=== PATIENT | male | born 1960 | race Caucasian/White ===

== ENCOUNTER → 2018-02-20 09:18 | Outpatient (CLI) | payer OTHER, SELFPAY ==
[2018-02-20 10:29] LABS: Absolute Neutrophil Count 4.4 X10^3/uL (2.0-7.7); Basophil# 0.02 X10^3/uL; Basophil% 0.3 % (0-1); Eosinophil# 0.22 X10^3/uL; Eosinophils% 3.4 % (0-5); Hematocrit 45.1 % (40-54); Hemoglobin 14.6 g/dl (13.0-16.5); Lymphocyte % 18.8 % (19-41); Mean Corp Hgb Conc 32.4 g/gl (32-36); Mean Corpuscular Hgb 27.1 pg (27.0-32.0); Mean Corpuscular Volume 83.7 fL (80-94); Mean Platelet Vol. 12.2 fl (6.2-12.0); Monocyte# 0.51 X10^3/uL; Neutrophil # 4.42 X10^3/uL (2.7-7.7); Neutrophil % 69.2 % (47-70); Platelet Count 163 K/mm3 (150-450); RBC Distribution Width CV 14.4 % (11.6-14.6); RBC Distribution Width SD 43.5 fl (35.1-43.9); Red Blood Count 5.39 M/mm3 (4.6-6.2); White Blood Count 6.4 K/mm3 (4.4-11.0)
[2018-02-20 10:30] LABS: POSITIVE COUNT NO; POSITIVE DIFFERENTIAL NO; POSITIVE MORPHOLOGY NO
[2018-02-20 10:51] LABS: Hemoglobin A1c 5.7 % (4.2-6.3)
[2018-02-20 11:09] LABS: ALB/GLOB Ratio 0.9 RATIO (0.9-2.4); AST(SGOT) 21 U/L (15-37); Alanine Aminotransfer ALT/SGPT 39 U/L (16-61); Albumin, Serum 3.7 g/dL (3.2-5.0); Alkaline Phosphatase 65 U/L (45-117); Anion Gap 10 (5-15); BUN 18 mg/dL (7-18); BUN/Creat Ratio 21.2 RATIO (10-20); Chloride 107 mmol/L (98-107); Cholesterol 181 mg/dL (200); Creatinine, Serum 0.85 mg/dL (0.70-1.30); EST Glomerular Filtration Rate 99 mL/min (>60); Est Glom Filt Rate - Afr Amer 120 mL/min (>60); Globulin 3.9 g/dL (2.2-4.2); Glucose 92 mg/dL (74-106); High Density Lipoprotein 46 mg/dL; PSA,Total - Annual Screen 0.56 ng/mL (0.00-4.00); Protein, Total 7.6 g/dL (6.4-8.2); Sodium Level 142 mmol/L (136-145); Triglycerides 105 mg/dL; Uric Acid 6.1 mg/dL (3.5-7.2); Very Low Density Lipoprotein 21 mg/dL (5-40)
== END ==
PROVIDERS: Family Provider Family Medicine; PCP Family Medicine; Visit Provider Family Medicine
DX: Z00.00 Encounter for general adult medical examination without abnormal findings (principal); G47.33 Obstructive sleep apnea (adult) (pediatric); M10.9 Gout, unspecified; R73.01 Impaired fasting glucose; Z12.5 Encounter for screening for malignant neoplasm of prostate
CPT/HCPCS: 36415; 80053; 80061; 83036; 84153; 84550; 85025; G0103

== ENCOUNTER → 2018-11-25 07:08 | Outpatient (CLI) | payer MEDICAID, SELFPAY ==
[2018-11-25 08:03] LABS: Absolute Lymphocyte Count 0.92 X10^3/ul (0.83-4.51); Absolute Neutrophil Count 3.8 X10^3/uL (2.0-7.7); Basophil# 0.03 X10^3/uL; Basophil% 0.6 % (0-1); Eosinophil# 0.23 X10^3/uL; Eosinophils% 4.2 % (0-5); Hemoglobin 14.2 g/dl (13.0-16.5); Lymphocyte # 0.92 X10^3/ul (4.0); Lymphocyte % 16.9 % (19-41); Mean Corp Hgb Conc 31.6 g/gl (32-36); Mean Corpuscular Hgb 26.9 pg (27.0-32.0); Mean Corpuscular Volume 85.2 fL (80-94); Mean Platelet Vol. 12.3 fl (6.2-12.0); Monocyte# 0.45 X10^3/uL; Monocyte% 8.3 % (0-10); Neutrophil # 3.78 X10^3/uL (2.7-7.7); Neutrophil % 69.6 % (47-70); Platelet Count 168 K/mm3 (150-450); RBC Distribution Width CV 14.5 % (11.6-14.6); Red Blood Count 5.28 M/mm3 (4.6-6.2); White Blood Count 5.4 K/mm3 (4.4-11.0)
[2018-11-25 08:11] LABS: POSITIVE COUNT NO; POSITIVE DIFFERENTIAL NO; POSITIVE MORPHOLOGY NO
[2018-11-25 08:45] LABS: Cholesterol 171 mg/dL (200); High Density Lipoprotein 46 mg/dL; PSA,Total - Annual Screen 0.48 ng/mL (0.00-4.00); Triglycerides 83 mg/dL; Uric Acid 6.4 mg/dL (3.5-7.2); Very Low Density Lipoprotein 17 mg/dL (5-40)
[2018-11-25 08:51] LABS: Hemoglobin A1c 5.7 % (4.2-6.3)
[2018-11-25 18:16] LABS: AST(SGOT) 24 U/L (15-37); Alanine Aminotransfer ALT/SGPT 40 U/L (16-61); Albumin, Serum 3.7 g/dL (3.2-5.0); Alkaline Phosphatase 66 U/L (45-117); Anion Gap 9 (5-15); BUN 16 mg/dL (7-18); BUN/Creat Ratio 17.9 RATIO (10-20); Calcium,Total 8.6 mg/dL (8.5-10.1); Chloride 109 mmol/L (98-107); Creatinine, Serum 0.89 mg/dL (0.70-1.30); EST Glomerular Filtration Rate 94 mL/min (>60); Est Glom Filt Rate - Afr Amer 113 mL/min (>60); Globulin 3.6 g/dL (2.2-4.2); Glucose 103 mg/dL (74-106); Potassium 4.1 mmol/L (3.5-5.1); Protein, Total 7.3 g/dL (6.4-8.2); Sodium Level 140 mmol/L (136-145)
== END ==
PROVIDERS: Family Provider Family Medicine; PCP Family Medicine; Referring Provider Family Medicine; Visit Provider Family Medicine
DX: Z00.01 Encounter for general adult medical examination with abnormal findings (principal); M10.9 Gout, unspecified; E66.01 Morbid (severe) obesity due to excess calories; R73.01 Impaired fasting glucose; Z12.5 Encounter for screening for malignant neoplasm of prostate
CPT/HCPCS: 36415; 80053; 80061; 83036; 84153; 84550; 85025; G0103

== ENCOUNTER → 2019-10-06 07:09 | Outpatient (CLI) | payer BC, SELFPAY ==
[2019-07-28 10:44] VITALS: BMI 42.3
[2019-10-06 08:11] LABS: Absolute Lymphocyte Count 1.25 X10^3/uL (0.83-4.51); Absolute Neutrophil Count 4.9 X10^3/uL (2.0-7.7); Basophil# 0.02 X10^3/uL; Basophil% 0.3 % (0-1); Eosinophil# 0.33 X10^3/uL; Eosinophils% 4.6 % (0-5); Hematocrit 44.3 % (40-54); Hemoglobin 13.7 g/dL (13.0-16.5); Lymphocyte # 1.25 X10^3/ul (4.0); Lymphocyte % 17.5 % (19-41); Mean Corp Hgb Conc 30.9 g/dL (32-36); Mean Corpuscular Hgb 26.1 pg (27.0-32.0); Mean Corpuscular Volume 84.4 fL (80-94); Mean Platelet Vol. 12.2 fl (6.2-12.0); Monocyte# 0.57 X10^3/uL; NRBC Flagged by Analyzer 0 % (0-5); Neutrophil % 68.8 % (47-70); Platelet Count 187 K/mm3 (150-450); RBC Distribution Width CV 14.1 % (11.6-14.6); RBC Distribution Width SD 42.8 fl (35.1-43.9); Red Blood Count 5.25 M/mm3 (4.6-6.2); White Blood Count 7.1 K/mm3 (4.4-11.0)
[2019-10-06 08:29] LABS: ALB/GLOB Ratio 0.9 RATIO (0.9-2.4); AST(SGOT) 15 U/L (15-37); Alanine Aminotransfer ALT/SGPT 30 U/L (16-61); Albumin, Serum 3.5 g/dL (3.2-5.0); Alkaline Phosphatase 64 U/L (45-117); Anion Gap 5 (5-15); BUN 17 mg/dL (7-18); Calcium,Total 8.8 mg/dL (8.5-10.1); Chloride 109 mmol/L (98-107); Cholesterol 169 mg/dL (200); EST Glomerular Filtration Rate 82 mL/min (>60); Est Glom Filt Rate - Afr Amer 99 mL/min (>60); Globulin 3.7 g/dL (2.2-4.2); Glucose 94 mg/dL (74-106); High Density Lipoprotein 51 mg/dL; PSA,Total - Annual Screen 0.49 ng/mL (0.00-4.00); Protein, Total 7.2 g/dL (6.4-8.2); Sodium Level 141 mmol/L (136-145); Triglycerides 77 mg/dL; Uric Acid 5.4 mg/dL (3.5-7.2); Very Low Density Lipoprotein 15 mg/dL (5-40)
[2019-10-06 09:56] LABS: Hemoglobin A1c 5.8 % (4.2-6.3)
== END ==
PROVIDERS: Family Provider Family Medicine; PCP Family Medicine; Referring Provider Family Medicine; Visit Provider Family Medicine
DX: Z00.01 Encounter for general adult medical examination with abnormal findings (principal); M10.9 Gout, unspecified; E66.01 Morbid (severe) obesity due to excess calories; R73.01 Impaired fasting glucose; Z12.5 Encounter for screening for malignant neoplasm of prostate
CPT/HCPCS: 36415; 80053; 80061; 83036; 84153; 84550; 85025; G0103

== ENCOUNTER → 2020-09-15 17:28 | Outpatient (CLI) | payer BC, SELFPAY ==
[2020-06-28 09:28] VITALS: BMI 42.3
== END ==
PROVIDERS: PCP Family Medicine; Referring Provider Family Medicine; Visit Provider Family Medicine
DX: Z03.818 Encounter for observation for suspected exposure to other biological agents ruled out (principal)
CPT/HCPCS: 87635; C9803; U0003

== ENCOUNTER → 2020-11-01 06:57 | Outpatient (CLI) | payer BC, SELFPAY ==
[2020-06-28 09:28] VITALS: BMI 42.3
[2020-11-01 07:14] LABS: Bacteria 0 SEEN /hpf (None Seen); Mucous, Urine 0 SEEN /hpf (<or=2+); Red Blood Cells-Urine 0 SEEN /hpf (0-5); White Blood Cells 0 SEEN /hpf (0-5)
[2020-11-01 08:32] LABS: Absolute Lymphocyte Count 1.09 X10^3/uL (0.83-4.51); Absolute Neutrophil Count 4.4 X10^3/uL (2.0-7.7); Basophil# 0.02 X10^3/uL; Basophil% 0.3 % (0-1); Eosinophil# 0.24 X10^3/uL; Eosinophils% 3.8 % (0-5); Hematocrit 44.1 % (40-54); Hemoglobin 14.1 g/dL (13.0-16.5); Lymphocyte # 1.09 X10^3/ul (4.0); Lymphocyte % 17.4 % (19-41); Mean Corpuscular Hgb 27.2 pg (27.0-32.0); Monocyte# 0.52 X10^3/uL; Monocyte% 8.3 % (0-10); NRBC Flagged by Analyzer 0 % (0-5); Neutrophil # 4.38 X10^3/uL (2.7-7.7); Neutrophil % 69.7 % (47-70); Platelet Count 185 K/mm3 (150-450); RBC Distribution Width CV 13.6 % (11.6-14.6); RBC Distribution Width SD 42.7 fl (35.1-43.9); Red Blood Count 5.19 M/mm3 (4.6-6.2); White Blood Count 6.3 K/mm3 (4.4-11.0)
[2020-11-01 08:55] LABS: Color, Urine Straw (Yellow); Glucose, Dipstick Normal (Normal); Ketone-Dipstick Negative (Negative); Leukocyte Esterase-Dipstick Negative /ul (Negative); Nitrite-Dipstick Negative (Negative); Occult Blood-Urine Negative /ul (Negative); Protein-Dipstick Negative (Negative); Specific Gravity, Urine 1.005 (1.002-1.030); Urine Bilirubin Dipstick Negative (Negative); Urine Clarity Clear (Clear); Urine Urobilinogen Normal (Normal); Urine pH 6.5 (5.0 - 8.0)
[2020-11-01 08:59] LABS: Hemoglobin A1c 5.6 % (3.8-5.6)
[2020-11-01 09:14] LABS: ALB/GLOB Ratio 1.1 RATIO (0.9-2.4); AST(SGOT) 16 U/L (15-37); Alanine Aminotransfer ALT/SGPT 36 U/L (16-61); Albumin, Serum 3.8 g/dL (3.2-5.0); Alkaline Phosphatase 71 U/L (45-117); BUN 19 mg/dL (7-18); BUN/Creat Ratio 20.5 RATIO (10-20); Calcium,Total 8.8 mg/dL (8.5-10.1); Cholesterol 194 mg/dL (200); Creatinine, Serum 0.92 mg/dL (0.70-1.30); EST Glomerular Filtration Rate 89 mL/min (>60); Est Glom Filt Rate - Afr Amer 108 mL/min (>60); Globulin 3.6 g/dL (2.2-4.2); Glucose 97 mg/dL (74-106); Protein, Total 7.4 g/dL (6.4-8.2); Triglycerides 124 mg/dL
[2020-11-01 09:15] LABS: Anion Gap 7 (5-15); Chloride 105 mmol/L (98-107); High Density Lipoprotein 47 mg/dL; Potassium 3.9 mmol/L (3.5-5.1); Sodium Level 137 mmol/L (136-145); Thyroid Stim Hormone (TSH) 0.79 uIU/mL (0.358-3.74); Very Low Density Lipoprotein 25 mg/dL (5-40)
[2020-11-01 09:19] LABS: Squamous Epithelial Cells - UA 0-5 SEEN /hpf (0-5)
[2020-11-03 09:39] LABS: SARS-COV-2 TOTAL ABS Nonreactive (Nonreactive); Vitamin B12 425 pg/mL (211-911); Vitamin D,25 Hydroxy 21.7 ng/mL
== END ==
PROVIDERS: PCP Family Medicine; Visit Provider Family Medicine
DX: Z00.00 Encounter for general adult medical examination without abnormal findings (principal); R53.83 Other fatigue; R82.90 Unspecified abnormal findings in urine; Z12.5 Encounter for screening for malignant neoplasm of prostate
CPT/HCPCS: 36415; 80053; 80061; 81001; 82306; 82607; 83036; 84443; 84550; 85025; 86769

== ENCOUNTER → 2021-05-12 08:26 | Outpatient (CLI) | payer OTHER, SELFPAY ==
[2020-06-28 09:28] VITALS: BMI 42.3
[2021-05-09 08:06] LABS: Absolute Lymphocyte Count 1.19 X10^3/uL (0.83-4.51); Absolute Neutrophil Count 3.6 X10^3/uL (2.0-7.7); Basophil# 0.05 X10^3/uL; Basophil% 0.9 % (0-1); Eosinophil# 0.32 X10^3/uL; Eosinophils% 5.7 % (0-5); Hematocrit 43.4 % (40-54); Hemoglobin 13.9 g/dL (13.0-16.5); Lymphocyte # 1.19 X10^3/ul (0.83-4.51); Lymphocyte % 21.1 % (19-41); Mean Corpuscular Hgb 26.7 pg (27.0-32.0); Mean Corpuscular Volume 83.5 fL (80-94); Mean Platelet Vol. 12.3 fl (6.2-12.0); Monocyte# 0.49 X10^3/uL; Monocyte% 8.7 % (0-10); NRBC Flagged by Analyzer 0 % (0-5); Neutrophil # 3.56 X10^3/uL (2.7-7.7); Neutrophil % 62.9 % (47-70); Platelet Count 185 K/mm3 (150-450); RBC Distribution Width CV 14.4 % (11.6-14.6); RBC Distribution Width SD 43.2 fl (35.1-43.9); White Blood Count 5.7 K/mm3 (4.4-11.0)
[2021-05-09 08:32] LABS: Albumin, Serum 3.5 g/dL (3.2-5.0); Anion Gap 6 (5-15); BUN 18 mg/dL (7-18); BUN/Creat Ratio 18.6 RATIO (10-20); Calcium,Total 9.3 mg/dL (8.5-10.1); Chloride 106 mmol/L (98-107); Creatinine, Serum 0.97 mg/dL (0.70-1.30); EST Glomerular Filtration Rate 85 mL/min (>60); Est Glom Filt Rate - Afr Amer 102 mL/min (>60); Glucose 97 mg/dL (74-106); Potassium 4.2 mmol/L (3.5-5.1); Sodium Level 139 mmol/L (136-145)
[2021-05-09 09:08] LABS: Hemoglobin A1c 5.8 % (3.8-5.6)
--- NOTE | 2021-05-12 08:45 | EKG12_ITS ---
Test Reason : PREOP Blood Pressure : / mmHG Vent. Rate : 077 BPM Atrial Rate : 077 BPM P-R Int : 160 ms QRS Dur : 080 ms QT Int : 378 ms P-R-T Axes : 036 011 012 degrees QTc Int : 427 ms Normal sinus rhythm Normal ECG Confirmed by MARCOS MASTERS, DARLING ([id number]), online content editor KHUSHBU GRULLON ([id number]) on 05/13/2021 10:44:58 AM Referred By: Bobby Jasso Confirmed By:DARLING RODRÍGUEZ MD
== END ==
PROVIDERS: PCP Family Medicine; Referring Provider Physician Assistant; Visit Provider Physician Assistant
DX: Z01.818 Encounter for other preprocedural examination (principal)
CPT/HCPCS: 36415; 80048; 82040; 83036; 85025; 93005

== ENCOUNTER → 2021-07-28 | Outpatient (CLI) | payer BC, SELFPAY | END | disposition home or self-care (01) | PROVIDERS: PCP Family Medicine; Referring Provider Family Medicine; Visit Provider Family Medicine | DX: Z20.822 Contact with and (suspected) exposure to COVID-19 (principal) | CPT/HCPCS: 87635; U0005; U0003 ==

== ENCOUNTER 2021-12-09 13:37 | Outpatient (RCR) | payer OTHER, BC, SELFPAY ==
--- NOTE | 2021-12-16 08:02 | HP.OTFCE_ITS ---
Floor (Occasional 1-33% of Day): 35# Floor (Frequent 34-66% of Day): 18# Floor (Constant 67-100% of Day): NA Floor PDL: Light-Medium Knee (Occasional 1-33% of Day): 35# Knee (Frequent 34-66% of Day): 18# Knee (Constant 67-100% of Day): NA Knee PDL: Light-Medium Waist (Occasional 1-33% of Day): 25# Waist (Frequent 34-66% of Day): 12# Waist (Constant 67-100% of Day): NA Waist PDL: Light Shoulder (Occasional 1-33% of Day): 25# Shoulder (Frequent 34-66% of Day): 12# Shoulder (Constant 67-100% of Day): NA Shoulder PDL: Light Overhead (Occasional 1-33% of Day): 10 Overhead (Frequent 34-66% of Day): NA Overhead (Constant 67-100% of Day): NA Overhead PDL: Sedentary Comments: pt can not lift on a constant ability due to pain in right shoulder Bending: Frequent Ability (34-66% of day) Comments: with external support Squatting: Frequent Ability (34-66% of day) Kneeling: Frequent Ability (34-66% of day) Comments: with external support Reaching out: Occasional Ability (1-33% of day) Reaching up: Occasional Ability (1-33% of day) Sitting: Frequent Ability (34-66% of day) Walking: Frequent Ability (34-66% of day) Standing: Frequent Ability (34-66% of day) Duration Sedentary Sedentary Light Light Light Medium Medium Medium Heavy Very Heavy Heavy Occasional (0-33% of day) Frequent (34-66% of day) Constant (67-100% of day) 10 # Negligible Negligible 15 # 8 # Negligible 20 # 10# Negli. 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 During this he felt and heard a pop in his right arm. Pt went to ER and after weeks of pain and limited mobility pt had MRI and it was found to have have multiple tears. ( Labral tear, Subscapularis and supraspinatus tears and long head of biceps rupture, Bursitis and luis angel. pt went through some physical therapy until he had sx in Mid 2021. pt states he went through physical therapy for about 5 months of therapy. pt states he feels like his strength has not return since the sx. Diagnoses: right shoulder labral tear. right shoulder subscapularis tear. right shoulder supraspinatus tear. right long head of biceps rupture. right shoulder sprain. right shoulder bursitis Symptoms: right shoulder pain. numbness in fingertips. Muscle cramp. Weakness. muscles jerks Pain: Pt states his right UE is 2/10 pain- pt states limited use arm pain is ok- increase use pain does increase. Mariela Pain scale total point score 38/78. Interpretation: ? minimum pain score: 0 (would not be seen in a person with true pain). ? maximum pain score: 78. ? The higher the pain score the greater the pain. References: Juaquin Mix. The Mariela Pain Questionnaire: Major properties and scoring methods. Pain. 1975;. 1: 277-299. Emmanuel Singleton. The Chinese counterpart to Mariela Pain Questionnaire. Pain. 1988; 32: 251-255. Work History: Pt works [employer]) almost 4 years. 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 pt states he went back to work right after sx on light duty- ( no lifting of right UE) pt is performing computer tasks for 8 hours. 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 pt states he worked for [employer] for about 7 years but due to buy outs he lost his job. Behavioral: pt cooperative throughout session pt forth good effort ADLS: pt states he lives in a ranch home with his - states he can shower but needs assistance with shirts.. will help with button shirts, coats etc. states until about a week ago he could not pull his pants together to button them. pt states he has difficulty with sleep due to pain. pt drives [employer]. does cooking, cleaning, grocery shopping- son did assist with yard work-. 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 ROM: right shoulder 135* flex. left shoulder 155* flex. all other ROM is WNL Strength: right shoulder flex resistance of 10# left 13#. right shoulder ext resistance of 13# painful with right left 18#. right shoulder horizontal add/abduction 15# pain with right left 14#. right triceps resistance of 13# left 29#. right biceps resistance 13# left 30#. right hip flex resistance 40# left 41#. right quad/hamstring resistance 48# left 36#. pt demo weakness in right UE Right Pulp Plant Supervisor Strength Average: 36.66 Right Pulp Plant Supervisor Strength Percentile: <4% Left Pulp Plant Supervisor Strength Average: 91.66 Left Pulp Plant Supervisor Strength Percentile: 54% Right Lateral Pinch Average: 10.00 Right Lateral Pinch Percentile: <10% Left Lateral Pinch Average: 20.00 Left Lateral Pinch Percentile: 50% Right Tripod Pinch Average: 10.66 Right Tripod Pinch Percentile: <10% Left Tripod Pinch Average: 16.00 Left Tripod Pinch Percentile: 25% Sensation: [place]- Brittany Monofilament sensory testing. left 2.83 interpretation Normal sensation (all digits). right IF, LF 3.84 interpretation Diminished protective sensation. right MF RF 3.61 interpretation Diminished light touch. right thumb 4.08 interpretation diminished protective sensation Fine Motor: 9 hole peg test. right 29.66 = 10 % for age. left 19.00 = 90% for age Balance: Pt demo normal -good balance. no noted loss of balance during assessment Bending: pt demo the bend forward 3/3x, 10/10x. heart rate at following the above 127. pt completed 07/12 rapidly. with use of external support. pt did get dizzy. pts heart rate 127. pt can bend forward on frequent ability with external support Squatting: pt demo the ability to squat 3/3x, 10/10x. heart rate 127. 1010 rapidly. pt heart rate 133 following 10 rapidly. pt can squat on a frequent ability Kneeling: Pt demo the ability to knee 3/3x 10/10 ( limited plan of movement ) heart rate 137. pt competed 10/10 rapidly limited plan of motion-use of external support. pt reports legs are burning after. pt can knee on a frequent ability with external support Reaching out/up: pt demo the ability to reach out 3/3x, 10/10x and 10/10 rapidly. pt reported pain 5/10. heart rate 121. pt demo the ability to reach up 3/3x, 10/10x. heart rate 121. 10/10 rapidly. pt reported pain level 4- 5/10. heart rate 123 Walking: pt demo the ability to ambulate for 15 min- with a good reciprocal gait pattern. pt can ambulate on a frequent ability Standing: pt demo the ability to stand for 10 min shifting body wt. pt can stand on a frequent ability Sitting: pt demo the ability to sit for 55 min with noted clenching of arm - pt can sit on a frequent ability. Climbing Stairs: pt demo the ability to ascend and descend 10 steps with a recipricola step pattern with use of left arm on handrail. pt maneuvered safely Floor Lift: pt demo the ability to lift 35# maximally from this level with good lifting mechanics. Knee Lift: pt demo the ability to lift 35# maximally from this level with good lifting mechanics. Waist Lift: pt demo the ability to lift 25# maximally from this level with good lifting mechanics. Shoulder Lift: pt demo the ability to lift 35# maximally from this level with good lifting mechanics. Overhead Lift: pt demo the ability to lift 10# maximally from this level with good lifting mechanics. Carrying: pt demo the ability to carry 15# for 30 feet with good ability. heart rate at 137 Comments: push/pull 45# for 30 feet. pain 4/10. pt did well with testing and put good effort into assessment
--- NOTE | 2021-12-16 08:02 | HP.OTFCE.D ---
FCE D/C Summary - Discharge ANUEL CLEMENTS was seen for a one time visit for an FCE on 12/09/21 and is discharged.
== END 2021-12-09 19:00 | disposition home or self-care (01) ==
LOC: OT 13:37
PROVIDERS: PCP Family Medicine; Referring Provider Orthopaedic Surgery; Visit Provider Orthopaedic Surgery
DX: S46.011D Strain of muscle(s) and tendon(s) of the rotator cuff of right shoulder, subsequent encounter (principal); S46.111D Strain of muscle, fascia and tendon of long head of biceps, right arm, subsequent encounter; S43.491D Other sprain of right shoulder joint, subsequent encounter
CPT/HCPCS: 97750

== ENCOUNTER 2021-12-29 16:14 | Outpatient (CLI) | payer OTHER, BC, SELFPAY ==
--- NOTE | 2021-12-29 16:33 | MRI_ITS ---
EXAM: MR RIGHT UPPER EXTREMITY WITHOUT INTRAVENOUS CONTRAST, SHOULDER CLINICAL INDICATION: STRAIN OF ROTATOR CUFF RT SHOULDER TECHNIQUE: Multiplanar and multisequence MR images of the right shoulder without intravenous contrast. This report was created using [employer] report [employer] technology. COMPARISON: None. FINDINGS: TENDONS: SUPRASPINATUS: Moderate grade partial thickness tearing involving the articular portion as well as the interstitial portion of the anterior tendon middle fibers of the supraspinous tendon. INFRASPINATUS: Unremarkable. Intact. SUBSCAPULARIS: Unremarkable. Intact. TERES MINOR: Unremarkable. Intact. BICEPS BRACHII, LONG HEAD: The biceps tendon is intact and normal in position. The extra-articular biceps tendon is in the bicipital groove. LIGAMENTS: GLENOHUMERAL: Unremarkable. Intact. MUSCLES: No focal muscle abnormalities. No rotator cuff muscle atrophy. FLUID: Unremarkable. No joint effusion. No subacromial-subdeltoid space bursal fluid. CARTILAGE: Unremarkable. Articular cartilage intact. GLENOID LABRUM: No labral abnormalities. BONES/JOINTS: Evidence of prior rotator cuff repair. Remaining rotator cuff is intact. Severe hypertrophic degenerative changes of the acromioclavicular joint with moderate mass affect on the musculotendinous junction of the supraspinous. Type II with flat undersurface. No subacromial enthesophyte. No os acromiale. No fracture. No abnormal bone marrow signal. OTHER SOFT TISSUES: Unremarkable. No rotator interval edema. OTHER FINDINGS: No marrow signal alterations. MRI/Upper Ext Joint Only(Routine) IMPRESSION: 1. Moderate grade partial thickness tearing involving the articular portion as well as the interstitial portion of the anterior tendon middle fibers of the supraspinous tendon. Bursal fibers are intact. 2. Severe hypertrophic degenerative changes of the acromioclavicular joint with moderate mass affect on the musculotendinous junction of the supraspinous. Electronically Signed: Irwin Hernandez MD at 21:48 EDT ,
== END 2021-12-29 23:59 | disposition home or self-care (01) ==
LOC: MRI 16:14
PROVIDERS: PCP Family Medicine; Visit Provider Orthopaedic Surgery
DX: S46.011A Strain of muscle(s) and tendon(s) of the rotator cuff of right shoulder, initial encounter (principal)
CPT/HCPCS: 73221

== ENCOUNTER → 2022-03-20 | Outpatient (CLI) | payer BC, SELFPAY ==
[2022-03-20 07:41] LABS: Absolute Lymphocyte Count 1.27 X10^3/uL (0.83-4.51); Absolute Neutrophil Count 4.3 X10^3/uL (2.0-7.7); Basophil# 0.03 X10^3/uL; Basophil% 0.5 % (0-1); Eosinophil# 0.27 X10^3/uL; Eosinophils% 4.2 % (0-5); Hematocrit 43.3 % (40-54); Hemoglobin 13.7 g/dL (13.0-16.5); Lymphocyte # 1.27 X10^3/ul (0.83-4.51); Lymphocyte % 19.7 % (19-41); Mean Corp Hgb Conc 31.6 g/dL (32-36); Mean Corpuscular Hgb 26.5 pg (27.0-32.0); Mean Corpuscular Volume 83.8 fL (80-94); Mean Platelet Vol. 11.8 fl (6.2-12.0); Monocyte# 0.48 X10^3/uL; Monocyte% 7.5 % (0-10); NRBC Flagged by Analyzer 0 % (0-5); Neutrophil # 4.34 X10^3/uL (2.7-7.7); Neutrophil % 67.3 % (47-70); Platelet Count 183 K/mm3 (150-450); RBC Distribution Width CV 14.9 % (11.6-14.6); RBC Distribution Width SD 45.2 fl (35.1-43.9); Red Blood Count 5.17 M/mm3 (4.6-6.2); White Blood Count 6.4 K/mm3 (4.4-11.0)
[2022-03-20 08:22] LABS: ALB/GLOB Ratio 0.9 RATIO (0.9-2.4); AST(SGOT) 22 U/L (15-37); Alanine Aminotransfer ALT/SGPT 40 U/L (16-61); Albumin, Serum 3.4 g/dL (3.2-5.0); Alkaline Phosphatase 60 U/L (45-117); Anion Gap 7 (5-15); BUN 17 mg/dL (7-18); BUN/Creat Ratio 17.5 RATIO (10-20); Chloride 106 mmol/L (98-107); Cholesterol 160 mg/dL (200); Creatinine, Serum 0.97 mg/dL (0.70-1.30); EST Glomerular Filtration Rate 84 mL/min (>60); Est Glom Filt Rate - Afr Amer 101 mL/min (>60); Globulin 3.9 g/dL (2.2-4.2); Glucose 108 mg/dL (74-106); High Density Lipoprotein 42 mg/dL; PSA,Total - Annual Screen 0.49 ng/mL (0.00-4.00); Protein, Total 7.3 g/dL (6.4-8.2); Sodium Level 138 mmol/L (136-145); Thyroid Stim Hormone (TSH) 1.07 uIU/mL (0.358-3.74); Triglycerides 102 mg/dL; Uric Acid 7.1 mg/dL (3.5-7.2); Very Low Density Lipoprotein 20 mg/dL (5-40)
[2022-03-20 09:03] LABS: Hemoglobin A1c 6.1 % (3.8-5.6)
[2022-03-22 08:27] LABS: Vitamin B12 474 pg/mL (211-911); Vitamin D,25 Hydroxy 21.9 ng/mL
== END | disposition home or self-care (01) ==
LOC: LAB 06:59
PROVIDERS: PCP Family Medicine; Referring Provider Family Medicine; Visit Provider Family Medicine
DX: Z00.00 Encounter for general adult medical examination without abnormal findings (principal); M10.9 Gout, unspecified; E55.9 Vitamin D deficiency, unspecified; R73.01 Impaired fasting glucose; R41.3 Other amnesia
CPT/HCPCS: 36415; 80053; 80061; 82306; 82607; 83036; 84153; 84443; 84550; 85025; G0103

== ENCOUNTER → 2022-04-28 | Outpatient (CLI) | payer BC, SELFPAY ==
--- NOTE | 2022-04-28 17:49 | MRI_ITS ---
STUDY: MRI LEFT KNEE REASON FOR EXAM: Left knee pain for 3 weeks. TECHNIQUE: Standardized fat and water weighted pulse sequences were obtained in all 3 orthogonal planes. COMPARISON: Radiographs 04/08/2022. FINDINGS: There is a complex tear of the posterior horn/body of the medial meniscus (proton-density sagittal images 32-36; proton-density coronal images 17-22). There is arthrosis of the medial femorotibial compartment with partial-thickness chondral loss (T2 sagittal image 17). There is slight subchondral bone edema of the medial tibial plateau, a stress phenomenon. There is mild periligamentous inflammation of the medial collateral ligament (T2 coronal image 26). Normal distal semimembranosus, gracilis and semitendinosus tendons. There is a small tear of the anterior horn of the lateral meniscus (proton-density sagittal images 14-16). Normal hyaline cartilage of the lateral femorotibial compartment. Normal lateral femoral condyle and tibial plateau. Normal proximal tibiofibular articulation. Normal lateral collateral (fibular) ligament. Normal popliteus tendon. Normal biceps femoris tendon. Normal anterior cruciate ligament (ACL). Normal posterior cruciate ligament (PCL). Normal congruent patellofemoral articulation. There is arthrosis of the patellofemoral compartment with chondral loss (T2 sagittal image 10). Normal medial and lateral patellar retinaculum. Normal visualized quadriceps tendon. Normal patellar tendon. Normal Hoffa''s fat pad. There is a very small joint effusion. There is edema in the subcutis adipose space. The otherwise visualized osseous structures are unremarkable. MRI/Lower Ext Joint Only (Routine) IMPRESSION: Medial meniscal tear. Small lateral meniscal tear. Arthrosis of the medial femorotibial and patellofemoral compartments. Mild periligamentous inflammation of the medial collateral ligament. Very small joint effusion. Electronically Signed: Julius Greer MD at 20:09 EDT ,
== END | disposition home or self-care (01) ==
LOC: MRI 17:49
PROVIDERS: PCP Family Medicine; Visit Provider Nurse Practitioner
DX: M23.92 Unspecified internal derangement of left knee (principal)
CPT/HCPCS: 73721

== ENCOUNTER 2022-04-29 15:30 | Outpatient (RCR) | payer BC, SELFPAY ==
--- NOTE | 2022-04-19 16:18 | HP.PTEVAL ---
Patient's Visit Information ANUEL CLEMENTS is a 61 year old M referred to Physical Therapy by BRAD Polk with a diagnosis of LEFT KNEE OSTEOARTHRITIS ,POSSIBLE MEDIAL MENISCUS TEAR. Date of Evaluation: 04/19/22 Physical Therapist: Donta Mccloud, PT, Cert MDT, OCS - Visit Plan Frequency: 2x /Week Duration: 4 Weeks Plan: PATIENT IS WAITING ON MRI APPROVAL. PT INTERVETIONS RO ,FLEXABLITY HAMSTRINGS /QUADS , GRADED PRES' QUADS/HAMS/HIP ,FUNCTIONAL STRENGTHENING AND MODALTIES PRN - Subjective This 61 y/o male presents to physical therapy with left knee pain OA. Patient reports ~ 3 weeks ago kneeling on knee several times and noticed knee pain next day which has progressively worse . Patient had difficulty walking and WB in knee. Patient has difficulty with cane and walker due to shoulder pain ,but able to use crutch as need for pain. Seen PA meloxicam ,did x-rays DJD . Aggravating factors walking ,standing ,stairs squatting, kneeling and WB. Alleviating factors rest ,ice, Denies paresthesia/tingling. Patient order MRI waiting for approval. Patient pain affects sleeping. Patient symptoms affects job and ADLS'. Patient goals to decrease knee pain. SOCIAL: . VOCATION: [employer] BODY - Pain Left Knee Pain Intensity (Out of 10): 6 Pain Intensity Range: 10 - Objective POSTURE: knee flexed left. GAIT: antalgic gait left side with decrease swing phase stance time. PALAPTION: medial /lateral joint line. EDEMA: mild effusion. AROM: 20-100 supine knee flexion pain. MMT ( peak force) : quads 14.7,hamstrings 20.6,hip flexion 21.5. STAIRS: one step at time with rails. PROPRIOCEPTION: POOR due to pain with WB - Special Tests L Knee Haja - ACL: Negative L Knee Anterior Drawer - ACL: Negative L Knee Posterior Drawer - PCL: Negative L Knee Posterior Sag - PCL: Negative L Knee Valgus - MCL: Negative L Knee Varus - LCL: Negative L Knee Patellar Grind - PFS: Positive - Balance/Special Test Scores Lower Extremity Functional Score: 24 - Goals Goal 1:: I with HEP for knee Goal Time Frame: 6-8 Weeks Goal 2:: Patient to improve AROM 5 -115 supine knee flexion to improve stairs Goal Time Frame: 4-6 Weeks Goal 3:: Patient to demonstrate 50% improvement with decrease pain to improve gait and function Goal Time Frame: 4-6 Weeks Goal 4:: Patient to improve MMT peak force by 10 for hams/quads to improve gait Goal Time Frame: 4-6 Weeks Goal 5:: Patient to normalize gait with less antalgic gait by 80% Goal Time Frame: 4-6 Weeks Goal 6:: Patient to improve LFES score by 5-10 points to QOL and gait Goal Time Frame: 4-6 Weeks - Rehabilitation Potential Physical Therapy Diagnosis: This patient with knee pain with possible meniscus involvement with pain ,poor ROM ,weakness causes deficits with walking affects general ADL's and housework tasks along with job demands thus will benefit from skilled PT and MRI Rehabilitation Potential: Good - Anticipated Interventions Patient/Client Instruction: Educate patient on: Condition, Plan of Care For the Purpose of:: To decrease pain, To increase ROM, To improve nutrient delivery to tissue, To increase oxygenation perfusion, To improve muscle performance and motor function, To improve ability to perform ADL's, To increase tolerance to activity/condition/position, To improve ability of physical actions for home/community/work/leisure, To improve gait and locomotor functions, To improve health of tissue, To decrease soft tissue restriction, To increase flexibility/ROM, To prevent re-injury Therapeutic Exercise to Include: Strength training, Power training, Endurance training, Balance training, Flexibilty training Comment: QUADS/HAMS/HIP For the Purpose of:: To decrease pain, To increase ROM, To improve muscle performance and motor function, To improve ability to perform ADL's, To increase tolerance to activity/condition/position, To improve ability of physical actions for home/community/work/leisure, To improve health of tissue, To decrease soft tissue restriction, To increase flexibility/ROM, To improve endurance, To improve balance TENS: Yes IF ES: Yes Cryotherapy (ice pack, ice massage): Yes Thermo therapy (hot pack): Yes Ultrasound (thermal/non thermal): Yes For the Purpose of:: To decrease pain, To increase ROM, To improve health of tissue, To decrease soft tissue restriction Thank you for the opportunity to evaluate your patient. For Medicare and Medicare HMO plans, please review the plan of care and approve it. It will need to be FAXED BACK to us at [phone] for Medicare purposes. For Medicare only, by signing this I certify the plan of care. Please let me know if there are questions or concerns regarding this plan of care. Physician Signature: Date:
--- NOTE | 2022-09-08 08:49 | HP.PT.NRP ---
ANUEL ZOË CLEMENTS was seen in my office for initial evaluation on 04/19/22. The following Plan of Care was established for this patient: Initial Frequency: 2x /Week Initial Duration: 4 Weeks Patient/Client Instruction: Educate patient on: Condition, Plan of Care For the Purpose of:: To decrease pain, To increase ROM, To improve nutrient delivery to tissue, To increase oxygenation perfusion, To improve muscle performance and motor function, To improve ability to perform ADL's, To increase tolerance to activity/condition/position, To improve ability of physical actions for home/community/work/leisure, To improve gait and locomotor functions, To improve health of tissue, To decrease soft tissue restriction, To increase flexibility/ROM, To prevent re-injury Therapeutic Exercise to Include: Strength training, Power training, Endurance training, Balance training, Flexibilty training For the Purpose of:: To decrease pain, To increase ROM, To improve muscle performance and motor function, To improve ability to perform ADL's, To increase tolerance to activity/condition/position, To improve ability of physical actions for home/community/work/leisure, To improve health of tissue, To decrease soft tissue restriction, To increase flexibility/ROM, To improve endurance, To improve balance TENS: Yes IF ES: Yes Cryotherapy (ice pack, ice massage): Yes Thermo therapy (hot pack): Yes Ultrasound (thermal/non thermal): Yes For the Purpose of:: To decrease pain, To increase ROM, To improve health of tissue, To decrease soft tissue restriction This patient was last seen in our office . Pertinent comments regarding their Physical therapy will appear below: Patient developed knee pain ,MRI then had meniscectomy knee thus d/c At this point I will be discontinuing this patient from physical therapy. I would be happy to see this patient again in the future if found appropriate by the physician. Thank you! Donta Mccloud, PT, Cert MDT, OCS Balance/Gait/Functional tests - Balance/Special Test Scores Lower Extremity Functional Score: 24
== END 2022-04-29 19:00 | disposition home or self-care (01) ==
LOC: PT 15:30
PROVIDERS: PCP Family Medicine; Referring Provider Nurse Practitioner; Visit Provider Nurse Practitioner
DX: M17.12 Unilateral primary osteoarthritis, left knee (principal)
CPT/HCPCS: 97110; 97162

== ENCOUNTER → 2022-05-29 | Outpatient (CLI) | payer BC, SELFPAY ==
[2022-05-29 07:55] LABS: Absolute Lymphocyte Count 1.41 X10^3/uL (0.83-4.51); Absolute Neutrophil Count 4.8 X10^3/uL (2.0-7.7); Basophil# 0.04 X10^3/uL; Basophil% 0.6 % (0-1); Eosinophil# 0.24 X10^3/uL; Eosinophils% 3.4 % (0-5); Hematocrit 43.6 % (40-54); Hemoglobin 13.8 g/dL (13.0-16.5); Lymphocyte # 1.41 X10^3/ul (0.83-4.51); Lymphocyte % 19.8 % (19-41); Mean Corp Hgb Conc 31.7 g/dL (32-36); Mean Corpuscular Hgb 27.1 pg (27.0-32.0); Mean Corpuscular Volume 85.5 fL (80-94); Mean Platelet Vol. 11.8 fl (6.2-12.0); Monocyte# 0.63 X10^3/uL; Monocyte% 8.8 % (0-10); NRBC Flagged by Analyzer 0 % (0-5); Neutrophil # 4.77 X10^3/uL (2.7-7.7); Neutrophil % 66.8 % (47-70); Platelet Count 185 K/mm3 (150-450); RBC Distribution Width CV 14.8 % (11.6-14.6); White Blood Count 7.1 K/mm3 (4.4-11.0)
[2022-05-29 08:21] LABS: ALB/GLOB Ratio 0.9 RATIO (0.9-2.4); AST(SGOT) 20 U/L (15-37); Alanine Aminotransfer ALT/SGPT 39 U/L (16-61); Albumin, Serum 3.4 g/dL (3.2-5.0); Alkaline Phosphatase 60 U/L (45-117); Anion Gap 6 (5-15); BUN 17 mg/dL (7-18); BUN/Creat Ratio 16.7 RATIO (10-20); Calcium,Total 9.6 mg/dL (8.5-10.1); Chloride 107 mmol/L (98-107); Creatinine, Serum 1.02 mg/dL (0.70-1.30); EST Glomerular Filtration Rate 79 mL/min (>60); Est Glom Filt Rate - Afr Amer 96 mL/min (>60); Globulin 3.9 g/dL (2.2-4.2); Glucose 103 mg/dL (74-106); Potassium 4.2 mmol/L (3.5-5.1); Protein, Total 7.3 g/dL (6.4-8.2); Sodium Level 139 mmol/L (136-145)
== END | disposition home or self-care (01) ==
LOC: LAB 06:59
PROVIDERS: PCP Family Medicine; Referring Provider Family Medicine; Visit Provider Family Medicine
DX: Z01.818 Encounter for other preprocedural examination (principal)
CPT/HCPCS: 36415; 80053; 85025

== ENCOUNTER 2022-06-04 11:28 | Day surgery (SDC) | payer BC, SELFPAY ==
[2022-06-04] VITALS (7 sets, daily range): BP systolic 129–173; BP diastolic 59–99; PULSE 74–97; RESP 16–18; TEMP 36.3–37; O2SAT 93–98; BMI 43.4
[2022-06-04] MEDS: Lactated Ringers 1,000 ML 15 ML IV (12:19)
[2022-06-04] MEDS: Cefazolin 2 GM in 0.9% Normal Saline 100 ML IV (13:32)
[2022-06-04] MEDS: Epinephrine (1 mg/ml) 1 MG/ML VIAL (13:40)
[2022-06-04] MEDS: morphine PF (epidural) 5 MG/10 ML Vial (13:40)
[2022-06-04] MEDS: Lidocaine 1% /Epi 1:100 (20ml) 20 ML Vial (13:41)
--- NOTE | 2022-06-04 14:23 | PCM.OPRPT ---
Problems Associated Problem List Diagnoses (1) Tear of lateral meniscus of left knee: (2) Tear of medial meniscus of left knee: (3) Osteoarthritis of left knee: Report of Operation Date of Procedure: 06/04/22 Description of Surgical Findings:: Preoperative diagnosis: Left knee medial and lateral meniscus tears, arthritis Postoperative diagnosis : Same plus loose body Procedure: Diagnostic video arthroscopy, left knee, partial medial meniscectomy, partial lateral meniscectomy, chondroplasty medial femoral condyle, removal loose body Surgeon: Dr. Yariel Puckett Anesthesia: General Special medications: Ancef 2 g IV Indications for surgery: Patient is a 61 -year-old male with a long-standing history of left knee pain. Patient failed adequate nonoperative treatment for the knee pain. MRI findings discussed with patient. Due to persistent symptoms they wish to proceed with knee arthroscopy. Findings: Intraoperative findings were consistent with patient's preoperative history, physical, radiographic exam. Details of procedure: Patient was taken to the OR transfer to the OR table. Nonoperative limb was appropriately padded, JOSE hose and SCD applied. Patient was placed under the anesthetic agent. Operative knee was examined. No signs of infection. Operative upper thigh was well-padded and ultimately placed in a well-padded thigh diaz. Operative lower extremity was prepped and draped in usual orthopedic sterile fashion for the procedure. Local anesthetic agent was sterilely injected into the proposed arthroscopic portals. Lateral portal was established with a knife. Took us through skin only. Dull trocar took us into the joint. The scope was placed through the lateral portal. Medial portal and ultimately established using a spinal needle followed by a knife through skin, followed by a dull trocar into the joint. Probe was placed to the medial portal. Patellofemoral joint: Moderate significant arthritis was noted. Patella tracked nicely. No significant plica noted. Medial and lateral gutter: No loose bodies or pathology noted. Intercondylar notch: ACL appeared within normal limits. Nice resting tension. loose bodies identified in notch. Loose body removed with a grasper. Hard structure probable loose bony fragment noted to be about 3 x 4 x 3 mm. Picture taken. no cystic changes noted. Medial compartment: Chondral surfaces showed degenerative changes involving the medial portion of the medial femoral condyle. Also medial meniscus tear posterior horn noted. Unstable. Nonrepairable. Partial medial meniscectomy was carried out with a shaver as well as forward biting basket. Chondroplasty carried out with a shaver. Full-thickness cartilage loss with bare bone not identified. Lateral compartment: Chondral surfaces with mild diffuse degenerative changes. lateral meniscus tear noted inner rim midportion., and compartment fully probed. Partial lateral meniscectomy carried out with a shaver. Posterior medial compartment: Could not be accessed due to patient's bony anatomy, arthritic changes. Posterior lateral compartment: Could not be accessed due to patient's bony anatomy, arthritic changes. Arthroscopic pictures were taken and saved throughout the procedure. Knee was drained of excess fluid. Arthroscopic instruments were removed. Arthroscopic portals closed with simple sutures of 4-0 nylon. Knee joint injected with a combination of local anesthetic and Duramorph. sterile bandage was applied. Patient was transferred to the room bed and recovery room in satisfactory condition. They will be discharged to home when stable, follow-up in the office in 7-10 days. Patient and the family understand discharge instructions, all of their questions answered. Patient will use 81 mg aspirin twice a day for DVT prevention. This note was generated with [email or web address] dictation software. It may contain incorrect words, spelling, and punctuation that were not noted in checking the note before signing.
[2022-06-04] MEDS: traMADol 50 MG Tablet PO (16:03)
[2022-06-04] MEDS: Acetaminophen 500 MG Tablet 1000 MG PO (16:03)
== END 2022-06-04 16:17 | disposition home or self-care (01) ==
LOC: SDC 11:28 → AC 11:31
PROVIDERS: PCP Family Medicine; Visit Provider Orthopaedic Surgery
PROC: (CPT 29870; principal; 2022-06-04 12:40)
DX: S83.282A Other tear of lateral meniscus, current injury, left knee, initial encounter (principal); Z68.42 Body mass index [BMI] 45.0-49.9, adult; M17.12 Unilateral primary osteoarthritis, left knee; S83.242A Other tear of medial meniscus, current injury, left knee, initial encounter; E66.9 Obesity, unspecified; X50.1XXA Overexertion from prolonged static or awkward postures, initial encounter; Y93.9 Activity, unspecified; Y92.9 Unspecified place or not applicable; G47.30 Sleep apnea, unspecified; Z87.891 Personal history of nicotine dependence; M10.9 Gout, unspecified; Z79.899 Other long term (current) drug therapy; R03.0 Elevated blood-pressure reading, without diagnosis of hypertension
CPT/HCPCS: 29880; 01400; 87426; C9803; J7120; J2405

== ENCOUNTER 2022-07-15 15:00 | Outpatient (RCR) | payer OTHER, BC, SELFPAY ==
--- NOTE | 2022-02-01 17:49 | HP.PTEVAL_ITS ---
Patient's Visit Information ANUEL CLEMENTS is a 61 year old M referred to Physical Therapy by Dr. Dwayne Pinzon, DO with a diagnosis of PRIMARY OSTEOARTHRITIS ,RIGHT SHOULDER ,IMPINGEMENT SYNDROME OF R -SHOULDER. Date of Evaluation: 02/01/22 Physical Therapist: Donta Mccloud, PT, Cert MDT, OCS - Visit Plan Frequency: 2-3x /Week Duration: 6 Weeks Plan: S/P RTC REPAIR May. PHYSICAL THERAPY INTERVENTIONS PROM/AAROM,STRENGTHENING RTC/POSTURAL,AND MODALTES PRN (CP/MHP) - Subjective This 61 y/o male presents to physical therapy with right shoulder pain impingement right shoulder. 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 Patient felt pop with immediate pain. Patient pain continue DR Pinzon did MRI 12/29/21 . Patient had 2nd opinion orthopedic did exam. Patient pain global and biceps . Patient had shoulder injury last January 15 had RTC surgery May 20 2021 , without repair bicep by Dr Pinzon. Patient has had prior PT at [facility]. Seen DR has new C9. Patient has been doing band strengthening. Patient has some paresthesia/tingling fingers. Patient has had FCE to RTW. Currently, patient is on light duty at work ,mainly on computer. Patient shoulder impairs function with ADL's and RTW full duty. Patient major goals to restore full motion and strength. Patient sleeping okay. No meds except maynor for pain . VOCATION: [employer]. SOCAIL: - Pain Right Shoulder Pain Intensity (Out of 10): 2 Pain Intensity Range: 10 - Objective POSTURE: mild forward posture. NEURO: intact. PALPATION: tender AC region. AROM: shoulder flexion 140 degrees, Abduction 140 degrees ,ER 90 degrees ,IR S3. CAPSULAR: mild tight. MMT(peak force): infraspinatus 7.3,subscapulars 8.6 ,subscapularis 11.4, deltoid 8.4 - Special Tests R Shoulder Lift Off Test - Subscapular Tear: Negative R Shoulder Drop Sign - IS Test: Negative R Shoulder Neer - Impingement: Positive R Shoulder Schneider Surya - Impingement: Positive - Balance/Special Test Scores Quick DASH Score: 62.5000 - Goals Goal 1:: I with HEP for ROM and strength right shoulder Goal Time Frame: 6-8 Weeks Goal 2:: Patient to demonstrate 60% improvement with increase function and less pain. Goal Time Frame: 6-8 Weeks Goal 3:: Patient improve AROM right shoulder by 10 degrees for flexion, abduction and IR to improve OH activities and ADLS' Goal Time Frame: 6-8 Weeks Goal 4:: Patient to peak force RTC and deltoid by 10 peak force to improve function with OH activities. Goal Time Frame: 6-8 Weeks Goal 5:: Patient to improve quick dash by 5 points to improve QOL Goal Time Frame: 6-8 Weeks - Rehabilitation Potential Physical Therapy Diagnosis: This patient underwent s/p RTC repair May 202020 ,by DR Pinzon with decrease ROM ,strength with pain impairs function and RTW full duty thus benefit from skilled PT Rehabilitation Potential: Good - Anticipated Interventions Patient/Client Instruction: Educate patient on: Condition, Plan of Care For the Purpose of:: To decrease pain, To increase ROM, To improve muscle performance and motor function, To improve ability to perform ADL's, To increase tolerance to activity/condition/position, To improve performance and independence with ADL's, To improve ability of physical actions for home/community/work/leisure, To improve health of tissue, To decrease soft tissue restriction, To increase flexibility/ROM, To improve endurance, To prevent re-injury Therapeutic Exercise to Include: Strength training, Flexibilty training, Passive ROM, Active ROM, Scapular Strength/Stabilization Comment: RTC/SCAPULAR For the Purpose of:: To decrease pain, To increase ROM, To improve ability to perform ADL's, To increase tolerance to activity/condition/position, To improve ability of physical actions for home/community/work/leisure, To improve health of tissue, To decrease soft tissue restriction, To increase flexibility/ROM, To improve tolerance to ADL's TENS: Yes IF ES: Yes Cryotherapy (ice pack, ice massage): Yes Thermo therapy (hot pack): Yes Ultrasound (thermal/non thermal): Yes For the Purpose of:: To decrease pain, To increase ROM, To improve nutrient delivery to tissue, To increase oxygenation perfusion, To improve health of tissue, To decrease soft tissue restriction Thank you for the opportunity to evaluate your patient. For Medicare and Medicare HMO plans, please review the plan of care and approve it. It will need to be FAXED BACK to us at [phone] for Medicare purposes. For Medicare only, by signing this I certify the plan of care. Please let me know if there are questions or concerns regarding this plan of care. Physician Signature: Date:
--- NOTE | 2022-07-15 15:31 | HP.PTDCSUM ---
It has been my pleasure to treat ANUEL CLEMENTS referred by Dr. Dwayne Pinzon DO, with the diagnosis of PRIMARY OSTEOARTHRITIS, RIGHT SHOULDER IMPINGEMENT SYNDROME for a total of 44 visit(s). Discharge Date: 07/15/22 Please see the following information for a summary of their discharge status. Subjective: Doing okay has alot of personal problems Right Shoulder Pain Intensity (Out of 10): 3 Left Knee Pain Intensity (Out of 10): 1 % Improvement: 60 Objective/Function: POSTURE: rounded shoulders. AROM : shoulder flexion 145 degrees,abd 140 degrees ER 80. MMT: 4-/5 RTC DELTOID Goal 1:: I with HEP for ROM and strength right shoulder Goal Progress: Goal Met Goal 2:: Patient to demonstrate 60% improvement with increase function and less pain. Goal Progress: Goal Met Goal 3:: Patient improve AROM right shoulder by 10 degrees for flexion, abduction and IR to improve OH activities and ADLS' Goal Progress: Goal Met Goal 4:: Patient to peak force RTC and deltoid by 10 peak force to improve function with OH activities. Goal Progress: Progressing Goal 5:: Patient to improve quick dash by 5 points to improve QOL Goal Progress: Goal Met Plan: S/P RTC REPAIR MAY 20, 2021. PHYSICAL THERAPY INTERVENTIONS PROM/AAROM, STRENGTHENING RTC/POSTURAL, AND MODALITES PRN (CP/MHP) If there are questions or concerns regarding this patient's physical therapy, please feel free to call me at [phone]. Thank you for the referral of this patient. Sincerely, Donta Mccloud, PT, Cert MDT, OCS Balance/Gait/Functional tests - Balance/Special Test Scores Quick DASH Score: 18.1800
== END 2022-07-15 19:00 | disposition home or self-care (01) ==
LOC: PT 15:00
PROVIDERS: PCP Family Medicine; Referring Provider Orthopaedic Surgery; Visit Provider Orthopaedic Surgery
DX: M19.011 Primary osteoarthritis, right shoulder (principal); M75.41 Impingement syndrome of right shoulder
CPT/HCPCS: 97014; 97110; 97162; G0283

== ENCOUNTER 2022-08-17 13:27 | Outpatient (RCR) | payer OTHER, BC, SELFPAY ==
--- NOTE | 2022-08-23 17:58 | HP.FCE ---
Floor (Occasional 1-33% of Day): 25# Floor (Frequent 34-66% of Day): 12.5# Floor (Constant 67-100% of Day): NA Floor PDL: Light Knee (Occasional 1-33% of Day): 25# Knee (Frequent 34-66% of Day): 12.5# Knee (Constant 67-100% of Day): NA Knee PDL: Light Waist (Occasional 1-33% of Day): 25# Waist (Frequent 34-66% of Day): NA Waist (Constant 67-100% of Day): NA Waist PDL: Light Shoulder (Occasional 1-33% of Day): 15# Shoulder (Frequent 34-66% of Day): 8# Shoulder (Constant 67-100% of Day): NA Shoulder PDL: Sedentary-Light Overhead (Occasional 1-33% of Day): 10# Overhead (Frequent 34-66% of Day): NA Overhead (Constant 67-100% of Day): NA Overhead PDL: Sedentary Comments: Light Physical demand Level for lifting from floor, Knee and waist levels. Sedentary Light Physical Demand Level for lifting at shoulder levels. Sedentary Physical Demand level for lifting overhead levels, Bending: Frequent Ability (34-66% of day) Comments: with external support Squatting: Frequent Ability (34-66% of day) Kneeling: Frequent Ability (34-66% of day) Comments: with external support Reaching out: Occasional Ability (1-33% of day) Reaching up: Occasional Ability (1-33% of day) Sitting: Frequent Ability (34-66% of day) Walking: Frequent Ability (34-66% of day) Standing: Frequent Ability (34-66% of day) Duration Sedentary Sedentary Light Light Light Medium Medium Medium Heavy Very Heavy Heavy Occasional (0-33% of day) Frequent (34-66% of day) Constant (67-100% of day) 10 # Negligible Negligible 15 # 8 # Negligible 20 # 10# Negli. 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 During this he felt and heard a pop in his right arm. Pt went to ER and after weeks of pain and limited mobility pt had MRI and it was found to have have multiple tears. ( Labral tear, Subscapularis and supraspinatus tears and long head of biceps rupture, Bursitis and sprain. pt went through some physical therapy until he had sx in Mid 2021. pt states he went through physical therapy for about 5 months of therapy. pt states he feels like his strength has not return since the sx. PT was seen for FCE December 2021 for his injury pt states he did continue physical therapy follow the FCE until about three weeks ago. per pt is trying to figure out what limitations he has to return to work. Diagnoses: right shoulder labral tear. right shoulder subscapularis tear. right shoulder supraspinatus tear. right long head of biceps rupture. right shoulder sprain. right shoulder bursitis. Left Knee scope 06/24 Symptoms: right shoulder pain. numbness in fingertips. Muscle cramp. Weakness. muscles jerks Pain: Pt states pain level sitting 3/10 and pain medication at 5am. pt states if he tries to pick things his right arm hurts so he tries to avoid it. Work History: Pt works [email or web address]) almost 4 years. 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 pt states he went back to work right after sx on light duty- ( no lifting of right UE) pt is performing computer tasks for 8 hours. 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 pt states he worked for [employer] for about 7 years but due to buy outs he lost his job. Behavioral: pt cooperative throughout session pt forth good effort ADLS: pt states he lives in a ranch home with his - states he can shower but needs assistance with shirts.. will help with button shirts, coats etc. states until about a week ago he could not pull his pants together to button them. pt states he has difficulty with sleep due to pain. pt drives [employer]. does cooking, cleaning, grocery shopping- son did assist with yard work-. 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 Physical Examination: resting heart rate 85 ROM: right shoulder 118* flex. left shoulder 160* flex. all other ROM is WFL Strength: strength tested with FIT2. right shoulder flexion 12.8# left 27#. right shoulder extension 14# left 28#. right biceps 16# left 32#. right triceps 19# left 32#. right hip flexion 48# left 49#. right quad 30# left 31#. right hamstring 32# left 28#. pt demo a right UE weakness grossly throughout compared to unaffected side. Right [employer] Specialist Strength Average: 34.10 Right Channel Marketing Specialist Strength Percentile: <4.8% Left [employer] Marketing Specialist Strength Average: 88.73 Left Channel Marketing Specialist Strength Percentile: 48% Right Lateral Pinch Average: 8.00 Right Lateral Pinch Percentile: <15% Left Lateral Pinch Average: 22.00 Left Lateral Pinch Percentile: 90% Right Tripod Pinch Average: 10.00 Right Tripod Pinch Percentile: <10% Left Tripod Pinch Average: 14.00 Left Tripod Pinch Percentile: 25# Sensation: [place]- [employer]any Monofilament sensory testing. left 2.83 interpretation Normal sensation (all digits). right IF, LF 3.84 interpretation Diminished protective sensation. right MF RF 3.84 interpretation Diminished light touch. right thumb 4.08 interpretation diminished protective sensation. Fine Motor: 9 hole peg test- testing fine motor manipulation. left 18.68 sec. 75% for his age. right 23.00 sec. 59% for his age Balance: Pt demo normal -good balance. no noted loss of balance during assessment- Bending: pt demo the bend forward 3/3x, 10/10x. heart rate at following the above 103. pt completed 10 rapidly. with use of external support. pt did get dizzy. pts heart rate follow 117 . pt can bend forward on frequent ability with external support Squatting: pt demo the ability to squat 3/3x, 10/10x. heart rate 104. 10/10 rapidly. pt heart rate 83 following 1010 rapidly. pt can squat on a frequent ability Kneeling: Pt demo the ability to knee 3/3x 10/10 ( limited plan of movement ) heart rate 113. pt competed 10/10 rapidly limited plan of motion-use of external support. pt reports legs are burning after. pt can knee on a frequent ability with external support Reaching out/up: pt demo the ability to reach out 3/3x, 10/10x and 10/10 rapidly. pt reported pain 5/10. heart rate 105. pt demo the ability to reach up 3/3x, 10/10x. heart rate 121. 10/10 rapidly. pt reported pain level 4-5/10. heart rate 96. pts right UE reaching up to his functional ROM. pt can reach up/out on occasional ability Walking: pt demo the ability to ambulate for 15 min- with a good reciprocal gait pattern. pt can ambulate on a frequent ability Standing: pt demo the ability to stand for 10 min shifting body wt. pt can stand on a frequent ability Sitting: pt demo the ability to sit for 55 min with noted clenching of arm - pt can sit on a frequent ability. Climbing Stairs: pt demo the ability to ascend and descend 10 steps with a reciprocal step pattern with use of left arm on handrail. pt maneuvered safely. heart rate 104 following task. Floor Lift: pt demo the ability to lift 25# maximally from this level with good lifting mechanics. Light Physical Demand Leve. Knee Lift: pt demo the ability to lift 25# maximally from this level with good lifting mechanics. Light Physical Demand Leve. Waist Lift: pt demo the ability to lift 25# maximally from this level with good lifting mechanics. Light light Physical Demand Leve. Shoulder Lift: pt demo the ability to lift 15# maximally from this level with good lifting mechanics. Sedentary light Physical Demand Level. Overhead Lift: pt demo the ability to lift 10# maximally from this level with good lifting mechanics. Sedentary Physical Demand Level. Carrying: pt demo the ability to carry 25# for 30 feet with good ability. Comments: pt is compensating with lifting and carry due to right shoulder pain. pt had prior FCE completed in December of this year.
--- NOTE | 2022-08-23 17:58 | HP.OTFCE.D ---
FCE D/C Summary - Discharge ANUEL CLEMENTS was seen for a one time visit for an FCE on 08/17/22 and is discharged.
== END 2022-08-17 19:00 | disposition home or self-care (01) ==
LOC: OT 13:27
PROVIDERS: PCP Family Medicine; Referring Provider Orthopaedic Surgery; Visit Provider Orthopaedic Surgery
DX: M17.12 Unilateral primary osteoarthritis, left knee (principal); S83.20 Tear of unspecified meniscus, current injury
CPT/HCPCS: 97750

== ENCOUNTER → 2023-10-15 | Outpatient (CLI) | payer OTHER, SELFPAY ==
--- OUTSIDE RECORDS SUMMARY | 2023-10-15 07:37 | XMS RPT_ITS | CCD ---
Author Name Unknown Address [address] [place] [address] Organization [facility] Care Team Providers Care Surgical Aides Teacher Name Role Phone JACY RENE Attending Unavailable EDGARDJACY JOY Primary Care Unavailable EDGARDJACY JOY Admitting Unavailable EDGARDJACY JOY Attending Unavailable EDGARDJACY Primary Care Unavailable EDGARDJACY Admitting Unavailable Unavailable Primary Care Provider BRANDON Tariq Referring Unavailab le CHICORELBRANDON MENDENHALL Attending Unavailab GIANNI Mendez Referring Unavailable CHICORELBRANDON MENDENHALL Admitting Unavailab le CHICORELLIBRANDON Attending Unavailab le Medications Completed/Discontinued Medications Medication Drug Class(es) Dates Sig (Normalized) Sig (Original) allopurinol 100 mg oral tablet (3 sources) Xanthine Oxidase Inhibitor Start: 09-18-2015 allopurinol (ZYLOPRIM) 100 mg tablet Take 50 mg by mouth. 0 09/18/2015 Active Problems Problem Classification Problem Date Documented Date Episodic/Chronic Gout and other crystal arthropathies (3 sources) Gout; Translations: [Gout, unspecified] Onset: 02-02-2023 Chronic Other connective tissue disease (2 sources) Radial styloid tenosynovitis; Translations: [Radial styloid tenosynovitis [de Quervain]] Episodic Other connective tissue disease (1 source) Pain in right hand; Translations: [Right hand pain] Onset: 01-26-2023 Episodic Other nervous system disorders (1 source) Other acute postprocedural pain; Translations: [Postoperative pain] Onset: 02-08-2023 Episodic Other nutritional; endocrine; and metabolic disorders (2 sources) Morbid obesity; Translations: [Morbid (severe) obesity due to excess calories] Onset: 02-02-2023 Chronic Other nutritional; endocrine; and metabolic disorders (1 source) Morbid (severe) obesity due to excess calories; Translations: [Morbid obesity (HCC)] Onset: 02-02-2023 Chronic Residual codes; unclassified (2 sources) Obstructive sleep apnea syndrome; Translations: [Obstructive sleep apnea (adult) (pediatric)] Onset: 02-02-2023 Chronic Residual codes; unclassified (1 source) Obstructive sleep apnea (adult) (pediatric); Translations: [BEN (obstructive sleep apnea)] Onset: 02-02-2023 Chronic Screening and history of mental health and substance abuse codes (3 sources) Ex-smoker; Translations: [Personal history of nicotine dependence] Onset: 02-02-2023 Episodic Results Test Name Value Interpretation Reference Range Facil ity Vital Signs Date Time Vital Sign Value Performing Clinician Faci lity 02-02-2023 10:32-0400 Body height 165.1 cm Pacc 1 Work Phone: [facility] 02-02-2023 10:32-0400 Body temperature 97.59 [degF] Pacc 1 Work Phone: [facility] 02-02-2023 10:32-0400 Body weight 118.84 kg Pacc 1 Work Phone: [facility] 02-02-2023 10:32-0400 Diastolic blood pressure 82 mm[Hg] Pacc 1 Work Phone: [facility] 02-02-2023 10:32-0400 Heart rate 78 /min Pacc 1 Work Phone: [facility] 02-02-2023 10:32-0400 Respiratory rate 16 /min Pacc 1 Work Phone: [facility] 02-02-2023 10:32-0400 SaO2% (BldA) [Mass fraction] 96 % Pacc 1 Work Phone: [facility] 02-02-2023 10:32-0400 Systolic blood pressure 134 mm[Hg] Pacc 1 Work Phone: [facility] Encounters Encounter Date Encounter Type Care Provider Facility Start: 02-08-2023 End: 02-08-2023 ambulatory BRANDON COLE Facility:[facility] Start: 02-02-2023 End: 02-03-2023 ambulatory BRANDON COLE Facility:[facility] Start: 02-02-2023 Encounter for other preprocedural examination BRANDON COLE [facility] Start: 02-02-2023 End: 02-02-2023 Admission to establishment Pacc [place] 1 Work Phone: [facility] Start: 02-02-2023 End: 02-02-2023 ambulatory Pacc [place] 1 Work Phone: Pre Anesthesia Plan of Treatment Date Care Activity Detail Author Start: 10-03-2022 DEPRESSION ASSESSMENT DEPRESSION ASS ESSMENT [facility] Start: 2017 PROSTATE CANCER SCRE ENING DISCUSSION PROSTATE CANCER SCREENING DISCUSSION [facility] Start: 2012 SHINGRIX VACCINE (1 of 2) SHINGRIX V ACCINE (1 of 2) [facility] Start: 2007 COLOGUARD (FIT-DNA) COLOGUARD (FIT-D NA) [facility] Start: 2007 Colonoscopy COLONOSCOPY [facility] Start: 2007 COLORECTAL CANCER SCREENING COLORECTAL CANCER SCREENING [facility] Start: [address] COLONOGRAPHY [facility] Start: 2007 DIABETES SCREEN DIABETES SCREEN [facility] Start: 2007 FECAL OCCULT BLOOD FECAL OCCULT BLOO D [facility] Start: 2007 SIGMOIDOSCOPY SIGMOIDOSCOPY [facility] Start: 1997 LIPID SCREEN LIPID SCREEN [facility] Start: 1981 Urine microalbumin profile DTAP,TDAP ,TD (1 - Tdap) [facility] Start: 1980 HEPATITIS C SCREENING HEPATITIS C SC REENING [facility] Start: 1980 HIV SCREENING HIV SCREENING [facility] [place] [facility] Payers Date Payer Category Payer Medicaid [place] [employer] [place] [employer] [id number] 2023-Present [phone] [address] [place], [place] [id number] Medicaid [id number] 2023 Medicaid [id number] 1960 Unknown [id number] 1960 Unknown [id number] Unknown [id number] Social History Date Type Detail Facility Start: [facility]-2023 [facility] History of tobacco use Current smoker [facility] History of tobacco use Cigarette Smoker [facility] Start: 01-26-2023 Tobacco use and exposure Smoke less tobacco non-user [facility] Start: 1960 Sex Assigned At Not on file [facility] Start: 02-02-2023 Alcohol intake Lifetime non-d kalli (finding) [facility] Clinical Note 02-08-2023 Note Date & Type Note Facility 02-08-2023 Note HNO ID: [id number] Author: Castillo Braswell APRN.SPRAY PAINTING MACHINE OPERATOR Service: Anesthesiology Author Type: Nurse Aviation Project Engineer Type: Anesthesia Procedure Notes Filed: 02/08/2023 3:15 PM Note Text: ANESTHESIOLOGY PROCEDURE NOTE Airway General Information Procedure Start Time/Medication Administration: 02/08/2023 3:11 PM Patient location during procedure: OR Timeout Performed Pre-procedure: timeout performed Consent Obtained: Yes Patient identity confirmed: arm band and patient Staffing SPRAY PAINTING MACHINE OPERATOR: Castillo Braswell APRN.SPRAY PAINTING MACHINE OPERATOR Performed by: STEVO Indications and Patient Condition Indications for airway management: anesthesia Preoxygenated: yes anesthesia circuit Method: asleep Final Airway Details Final airway type: supraglottic airway Number of attempts at approach: 1 Final Supraglottic Airway: i-gel Size 4 Seal Adequate: yes Airway not difficult SIGNATURE: Castillo Braswell APRN.SPRAY PAINTING MACHINE OPERATOR PATIENT NAME: Anuel Clements DATE: February 08, 2023 TIME: 3:15 PM CSN: [id number] [facility] Instructions 02-02-2023 Patient Instructions Note Date & Type Note Facility 02-02-2023 Instructions Mary Catalan APRN.BOOTH CASHIER - 02/02/2023 10:38 AM EDT PATIENT PREOPERATIVE INSTRUCTIONS Brandon Cole,* has scheduled you for your procedure at this surgery center: [facility]: [phone] -- [address] [facility] [address]. Please read below carefully for your personalized instructions. Dietary Restrictions: - No solid food after midnight. - You may have 12 ounces of clear liquids (water, clear juices such as apple juice or gatorade, carbonated beverages, clear tea, black coffee, jello) until 2 hours before scheduled arrival at facility. No red/purple coloring and no creamer/sugar Medications: Unless instructed differently below, stay on all of your medications until your surgery. Approved medications to take the morning of surgery with a sip of water: NONE If you take any medications for erectile dysfunction-Cialis (Tadalafil), Levitra, Staxyn (Vardenafil) Viagra (Sildenenafil please do not take these for 48 hours before surgery. If you start any new medications after today's visit, please contact the surgeon's office. Blood Thinning Medications: - Stop NSAIDS (Ibuprofen, Advil, Aleve, Motrin, Celebrex, Mobic, etc.) 7 days before surgery, as directed by your surgeon. - Stop Aspirin 7 days before surgery, as directed by your surgeon. - Stop Vitamin E, ALL multi-vitamins, herbals and dietary supplements 7 days before surgery. - You may take Tylenol (Acetaminophen) or any of your pain medications that do not contain aspirin or NSAIDS as needed. Important Reminders: - Candy, mints, and tobacco products are NOT permitted the morning of surgery. - Hearing aids, dentures and glasses may be worn the morning of surgery. - NO jewelry, body piercings, makeup, hairpins or contacts are to be worn the day of surgery. If you develop symptoms such as a fever, cold, or flu, or have other changes to your health within TWO DAYS of scheduled surgery or the morning of surgery, please contact the surgery center above. Personal Belongings: -Please have photo ID and insurance cards. -If you do not have a copy of advance directives on file with us, please bring a copy with you on the day of surgery. - Leave ALL valuables and money at home or with family members. For Outpatient Procedures: - YOU MUST HAVE A RESPONSIBLE CURBSTONE SETTER TAKE YOU HOME. A POSITION CLASSIFICATION SPECIALIST OR SENIOR PRODUCT DESIGNER CANNOT BE MADE A RESPONSIBLE CURBSTONE SETTER. - We recommend that a responsible person stays with you overnight to take care of you. - You cannot stay in a hotel alone after outpatient surgery. You will not be permitted to have your surgery, if you do not have someone to take care of you. Arrival Time for Surgery: - The Surgery Center or hospital where you are having surgery will call the afternoon before surgery (or Tuesday for Tuesday surgery) with a scheduled arrival time. - If you have not heard by 4 pm, please contact the surgery center above. Please be aware that emergency situations arise, which may delay or change your surgical time. If this happens, we will notify you as soon as possible and regret any inconvenience. If you already have an Advance Directive, please fax a copy to [phone] or email to for it to be added to your chart. If you do not have an Advance Directive, you can find the appropriate form and more information at [email or web address]. We recommend that you complete the Advance Directive form found on the website and bring it with you the day of your surgery. It can be witnessed and scanned into your chart that day. Mary Catalan APRN.HUDSON documented in this encounter [facility] History and physical note 02-02-2023 Mary Catalan APRN.CNP - 02/02/2023 10:37 AM EDT Note Date & Type Note Facility 02-02-2023 History and physical note Images from the original note were not included. HISTORY AND PHYSICAL EXAMINATION SERVICE DATE: 02/02/2023 SERVICE TIME: 11:09 AM PRIMARY CARE PHYSICIAN: No primary care provider on file. REASON FOR VISIT: Anuel Clements is a 62 year old male who is scheduled for Procedure(s): RELEASE CONTRACTURE DEQUERVAINS (Right) at the request of Dr. Brandon Cole for consultation. My final recommendation will be communicated back to the requesting physician by way of shared medical record or letter. Subjective The patient has the following: ACTIVE PROBLEM LIST Morbid Obesity (Hcc) Gout Ben (Obstructive Sleep Apnea) Former Smoker COVID-19 Immunization Status COVID-19 VACCINE (Series Information) Completed 06/25/2022 Imm Admin: COVID-19 vaccine, age 12+ yr, bivalent ([email or web address]) 08/28/2021 Outside Immunization: COVID-19, mRNA, LNP-S, PF, 30 mcg/0.3 mL dose 01/05/2021 Outside Immunization: COVID-19, mRNA, LNP-S, PF, 30 mcg/0.3 mL dose Only the first 3 history entries have been loaded, but more history exists. CHIEF COMPLAINT: Pre-op exam HPI: Anuel Clements is a 62 year old seen for PAC due to scheduled above surgery because of deQuervain. 01/26/2023, Dr. Cole History of Present Illness: PAIN EVALUATION 01/26/2023 1514 Pain Level: 8 with use Pain Location: Finger Description: Sharp;Shooting;Aching Duration Amount of Time: 1 Duration Units: Months Frequency: Continuous Intervention/Comfort measure: - MDP, tylneol, HPI: Anuel Clements is a 62 year old male presenting today with right thumb pain. Patient has been doing well until the last month. No injury to hand but does complain of pain when using thumb. Patient is left hand dominate. Pain history is noted as above. Denies calf pain, numbness, tingling, fever, chills or other constitutional symptoms. Previous Treatments: Ice: No Heat: No Brace: No NSAIDs: Yes, tylenol Injections: No Surgeries: No Physical Therapy: No REVIEW OF SYSTEMS: General: No weight loss, malaise or fevers. Neurological: No history of TIA's, stroke, TOOL DISTRIBUTOR tumor, impaired sensorium, hemiplegia, paraplegia or quadraplegia. No neurological symptoms or problems. Respiratory: Positive for: obstructive sleep apnea and CPAP/BiPAP compliant. Negative for: asthma, COPD, pneumonia within 6 weeks, tobacco use and URI < 2 weeks. Cardiovascular: No history of HTN requiring medication, no history of angina, CHF, CA, cardiac surgery or stents. Denies rest pain, gangrene or revascularization/amputation for PVD. No history of cardiovascular symptoms or problems. GI: No history of GI symptoms or problems. No history of esophageal varices, recent ascites, or ETOH greater than 2 drinks per day. : No history of dysuria, frequency or incontinence, stones or chronic kidney disease. No difficulty urinating, nocturia > 1 time per night or hematuria. Endocrine: No history of diabetes. Has not taken steroids within the past 30 days. No history of endocrinological symptoms or problems. Hematology: No history of bleeding or clotting disorder. Patient is not taking anti-coagulation or platelet medications. No history of hematological symptoms or problems. Oncology: No history of CA metastasis, chemo within 30 days, or radiotherapy within 90 days. No history of oncological symptoms or problems. Psych: No history of psychiatric symptoms or problems. Musculoskeletal: See HPI. +gout on rx Skin: Negative for lesions, rash and itching. PAST MEDICAL HISTORY Diagnosis Date Carpal tunnel syndrome on both sides Gout PAST SURGICAL HISTORY Procedure Laterality Date ARTHROSCOPY KNEE DIAGNOSTIC W/WO SYNOVIAL BX SPX Left REPAIR ROTATOR CUFF,ACUTE Right REVISE MEDIAN N/CARPAL TUNNEL SURG Bilateral FAMILY HISTORY Problem Relation Age of Onset Diabetes Mother Parkinson s Disease Father Social History Tobacco Use Smoking status: Former Types: Cigarettes Smokeless tobacco: Never Vaping Use Vaping Use: Never used Substance Use Topics Alcohol use: Never Drug use: Never Prior to Admission medications as of 02/02/23 1037 Medication Sig Last Dose Taking allopurinol (ZYLOPRIM) 100 mg tablet Take 50 mg by mouth. Taking Yes No medication comments found. ALLERGIES No Known Allergies Objective PHYSICAL EXAM: General: alert and oriented (x3), healthy appearance and morbidly obese. Pertinent negatives noted - not distressed. Skin: normal color, no rash or lesions. HEENT: EOM intact and pupils equal round. Pertinent negatives noted - no carotid bruit. Cardiovascular: regular rate and rhythm, normal S1 and S2, no rub, murmurs, or gallop. Respiratory: normal breath sounds, no wheezes or crackles. No chest wall deformity or tenderness. Abdomen: soft. Pertinent negatives noted - not tender. Extremities: no deformity, no edema or tenderness, no joint swelling or clubbing. Neurological: normal cognition and motor skills. Gait normal. No weakness or sensory deficit. PAIN ASSESSMENT: Pain Pain Level: 6 Pain Location: Wrist-Right Description: Sore Duration Amount of Time: 6 Duration Units: Weeks Frequency: Continuous Intervention/Comfort measure: Medication VITALS: BP 134/82 Pulse 78 Temp (Src) 97.6 (Temporal) Resp 16 Ht 5' 5 (1.65m) Wt 262 lb (118.8kg) SpO2 96% BMI 43.60 kg/(m^2). Diagnostic tests reviewed for today's visit: Lab Value Units Date High Low HB No results within date range. HCT No results within date range. WBC No results within date range. PLT No results within date range. NA No results within date range. K No results within date range. GLUC No results within date range. BUN No results within date range. CREAT No results within date range. PTSEC No results within date range. INR No results within date range. APTT No results within date range. ALT No results within date range. AST No results within date range. TBILI No results within date range. TSH No results within date range. Lab Value Units Date High Low HCGQT No results within date range. UHCG No results within date range. HCG, BODY* No results within date range. Lab Value Units Date High Low ABORHD No results within date range. ABSCREEN No results within date range. No results found for: HBA1C No results found for this or any previous visit (from the past 8760 hour(s)). No results found for this or any previous visit (from the past 88506 hour(s)). Assessment Patient has the following medical conditions which may affect phoebe-operative course: Morbid obesity (HCC) Assessment: Body mass index is 43.6 kg/m . Gout Assessment: controlled on rx BEN (obstructive sleep apnea) Assessment: c/w CPAP Former smoker Assessment: 0.5ppd/5years, denies asthma or COPD Baron Activity Status Index: METS: Climb a flight of stairs or walk up a hill (5.50 METs) DASI Score: 5.5 Patient denies any chest pain or undue shortness of breath with the above physical activity. Clinical Frailty Scale: 3. Well, with treated comorbid disease STOP-Bang Score: Snores loudly Has been observed to stop breathing or choking/gasping during sleep BMI greater than 35 kg/m^2 Patient over 50 years old Has a large neck Male patient Denies feeling tired, fatigued, or sleepy during the daytime Denies having high blood pressure STOP-Bang Score: 6 [id number] Score: Age: <65 Sex: male CHF history: No Hypertension history: No Stroke/TIA/thromboembolism history: No Vascular disease history: No Diabetes history: No [id number] Score: 0 ARISCAT Score: Age: 51-80 Preoperative SpO2: >=96% Respiratory infection in the last month: No Preoperative anemia: Yes Surgical incision: peripheral Duration of surgery: <2 hrs Emergency procedure: No ARISCAT Score: 14 ASA Class: 3 ANESTHESIA FINDINGS: Intubation History: No history of difficult intubation Significant Anesthesia Considerations: none Airway History: No history of difficult airway I - PHYSICAL EVALUATION AIRWAY Patient intubated: No. Tracheostomy tube not present Mallampati: III. TM distance: >3 FB. Neck ROM: full ROM without neurological symptoms. Mouth opening: adequate. Short neck: no. Thick neck: yes Sherman present: no Lip Bite Test: II Microretrognathia/Micronagthia/Recesse d Chin: No DENTAL Dental findings: teeth intact. II - ANESTHESIA PLAN ASA Score: 3 Anesthetic Plan: other Anesthetic plan additional comments: *PACC/TCI - anesthesia choice. Beta Rita Monitoring Plan Post Procedure Analgesic Plan Informed Consent Anesthetic risks, benefits, alternatives, personnel and consent discussed: yes. Patient / Responsible Republican agrees to proceed: yes Patient / Surrogate agrees to blood products: blood products not planned Discussed the possibility of lip / dental damage: yes Prepared for Surgery: optimally prepared for surgery. CONSULTS: Patient does not require consults for optimization at this time Planned Anesthetic: other anesthesia choice The Following Tests/Procedures Have Been Initiated: No orders of the defined types were placed in this encounter. Instructions Given to Patient: Instructions located in the after visit summary. Patient given verbal and written preop instructions and voices comprehension and compliance. SIGNATURE: Mary Catalan APRN.CNP PATIENT NAME: Anuel Clements DATE: February 02, 2023 TIME: 10:37 AM PAGER/CONTACT #: documented in this encounter [facility] Progress note 01-26-2023 Note Date & Type Note Facility 01-26-2023 Note HNO ID: [id number] Author: Brandon Cole, DO Service: ? Author Type: Physician Type: Progress Notes Filed: 01/26/2023 3:38 PM Note Text: Reason for Visit/Chief Complaint Anuel Clements is a 62 year old male who presents today for a new evaluation of following complaint: Patient presents with: Right Thumb - New, Pain History of Present Illness: PAIN EVALUATION 01/26/2023 1514 Pain Level: 8 with use Pain Location: Finger Description: Sharp;Shooting;Aching Duration Amount of Time: 1 Duration Units: Months Frequency: Continuous Intervention/Comfort measure: -- MDP, tylneol, HPI: Anuel Clements is a 62 year old male presenting today with right thumb pain. Patient has been doing well until the last month. No injury to hand but does complain of pain when using thumb. Patient is left hand dominate. Pain history is noted as above. Denies calf pain, numbness, tingling, fever, chills or other constitutional symptoms. Previous Treatments: Ice: No Heat: No Brace: No NSAIDs: Yes, tylenol Injections: No Surgeries: No Physical Therapy: No Review of Systems: Patient did not have, and does not currently have, any weight loss, malaise, fever, chills, headache, chest pain, chest pressure, palpitations, cough, shortness of breath, orthopnea, paroxsymal nocturnal dyspnea, nausea, vomiting, diarrhea, constipation, melena, hematochezia, urinary difficulties, prolonged bleeding, easily bruising, heat or cold intolerance, new onset joint pain or swelling, new onset extremity weakness or numbness, new onset auditory or visual disturbances, lightheadedness, dizziness, partial loss of consciousness or full loss of consciousness. Current Outpatient Medications on File Prior to Visit Medication Sig allopurinol (ZYLOPRIM) 100 mg tablet Take 50 mg by mouth. methylPREDNISolone (MEDROL DOSE-PACK) 4 mg Dose-Pack TAKE 6 TABLETS ON DAY 1 DIRECTED ON PACKAGE AND DECREASE BY 1 TAB EACH DAY FOR A TOTAL OF 6 DAYS No current facility-administered medications on file prior to visit. ALLERGIES No Known Allergies Physical Exam: Vitals: There were no vitals taken for this visit. Psych: Pleasant, good affect and mood General Appearance: Well appearing, alert, in no acute distress, well-hydrated, well nourished.. Skin: Skin color, texture, turgor normal, no suspicious rashes or lesions. Peripheral Pulses: Normal. Neurologic: Gait normal. Reflexes normal and symmetric. Sensation grossly intact.. Lymph Nodes: No cervical lymphadenopathy, No supraclavicular lymphadenopathy, No axillary lymphadenopathy., and No inguinal lymphadenopathy.. Respiratory: No recent pulmonary infection, hemoptysis, chronic cough, or shortness of breath at rest Rheumatologic: Joint deformities: right thumb pain Right Hand Exam Tenderness The patient is experiencing tenderness in the radial area. Range of Motion The patient has normal right wrist ROM. Wrist Extension: normal Flexion: normal Pronation: normal Supination: normal Muscle Strength The patient has normal right wrist strength. Tests Phalen?s Sign: negative Tinel's sign (median nerve): negative John's test: positive Other Erythema: absent Sensation: normal Pulse: present Comments: B/l med/uln/rad/ax nerves intact Left Hand Exam Left hand exam is normal. Tenderness The patient is experiencing no tenderness. Range of Motion The patient has normal left wrist ROM. Wrist Extension: normal Flexion: normal Pronation: normal Supination: normal Muscle Strength The patient has normal left wrist strength. Tests Phalen?s Sign: negative Tinel's sign (median nerve): negative John's test: negative Other Erythema: absent Sensation: normal Pulse: present Imaging: Last XR Wrist - Impression Only No resulted procedures found. Assessment and Plan: Impression: Encounter Diagnosis ICD-10-CM 1. Tenosynovitis, de Quervain M65.4 Plan: Today, in detail, through a thorough evaluation, we discussed possible etiologies of pain and our plans for further diagnostic and therapeutic interventions. We discussed strategies for decreasing pain and improving strength, stability and motion. Patient's questions were answered in detailed. Patient verbalizes understanding and agrees with the treatment plan as discussed. Risks and benefits vs alternatives to treatment were discussed with patient. Risks including but not limited to blood loss, blood clot, infection, neurovascular injury, failure of procedure, need for revision operation, loss of life and loss of limb. Patient aware of risks and benefits and agrees to proceed with written consent for surgical intervention. Right wrist de Quervains release [facility] Progress note 01-26-2023 Note Date & Type Note Facility 01-26-2023 Note HNO ID: [id number] Author: BAILEY Castano Service: Radiology Author Type: Technologist Type: Progress Notes Filed: 01/26/2023 3:26 PM Note Text: Radiology Service Progress Note PATIENT NAME: Anuel Clements DATE OF SERVICE: January 26, 2023 TIME: 3:25 PM PATIENT IDENTITY VERIFICATION COMPLETED USING TWO (2) IDENTIFIERS: Name and Date of confirmed by patient verbally. FALL SCREENING: Has the patient had 2 falls in the last year or 1 fall with injury or currently using an Ambulatory Assistive Device (Walker, Cane, Wheelchair, Crutches, etc.)? No PATIENT GENDER DATA: Male PATIENT RELEVANT IMPLANT DATA REVIEWED: Not Applicable RADIOLOGY DEPARTMENT: General X-ray: Exam(s) Completed: Upper Extremity X-Ray(s): Hand, right PERIPHERAL IV DATA: Not applicable SIGNED BY: BAILEY Castano January 26, 2023 3:25 PM [facility] History of Present illness Narrative 01-26-2023 Brandon Cole DO - 01/26/2023 3:18 PM EDT Note Date & Type Note Facility 01-26-2023 History of Presen t illness Narrative Images from the original note were not included. Reason for Visit/Chief Complaint Anuel Clements is a 62 year old male who presents today for a new evaluation of following complaint: Patient presents with: Right Thumb - New, Pain History of Present Illness: PAIN EVALUATION 01/26/2023 1514 Pain Level: 8 with use Pain Location: Finger Description: Sharp;Shooting;Aching Duration Amount of Time: 1 Duration Units: Months Frequency: Continuous Intervention/Comfort measure: -- MDP, tylneol, HPI: Anuel Clements is a 62 year old male presenting today with right thumb pain. Patient has been doing well until the last month. No injury to hand but does complain of pain when using thumb. Patient is left hand dominate. Pain history is noted as above. Denies calf pain, numbness, tingling, fever, chills or other constitutional symptoms. Previous Treatments: Ice: No Heat: No Brace: No NSAIDs: Yes, tylenol Injections: No Surgeries: No Physical Therapy: No Review of Systems: Patient did not have, and does not currently have, any weight loss, malaise, fever, chills, headache, chest pain, chest pressure, palpitations, cough, shortness of breath, orthopnea, paroxsymal nocturnal dyspnea, nausea, vomiting, diarrhea, constipation, melena, hematochezia, urinary difficulties, prolonged bleeding, easily bruising, heat or cold intolerance, new onset joint pain or swelling, new onset extremity weakness or numbness, new onset auditory or visual disturbances, lightheadedness, dizziness, partial loss of consciousness or full loss of consciousness. Current Outpatient Medications on File Prior to Visit Medication Sig allopurinol (ZYLOPRIM) 100 mg tablet Take 50 mg by mouth. methylPREDNISolone (MEDROL DOSE-PACK) 4 mg Dose-Pack TAKE 6 TABLETS ON DAY 1 DIRECTED ON PACKAGE AND DECREASE BY 1 TAB EACH DAY FOR A TOTAL OF 6 DAYS No current facility-administered medications on file prior to visit. ALLERGIES No Known Allergies Physical Exam: Vitals: There were no vitals taken for this visit. Psych: Pleasant, good affect and mood General Appearance: Well appearing, alert, in no acute distress, well-hydrated, well nourished.. Skin: Skin color, texture, turgor normal, no suspicious rashes or lesions. Peripheral Pulses: Normal. Neurologic: Gait normal. Reflexes normal and symmetric. Sensation grossly intact.. Lymph Nodes: No cervical lymphadenopathy, No supraclavicular lymphadenopathy, No axillary lymphadenopathy., and No inguinal lymphadenopathy.. Respiratory: No recent pulmonary infection, hemoptysis, chronic cough, or shortness of breath at rest Rheumatologic: Joint deformities: right thumb pain Right Hand Exam Tenderness The patient is experiencing tenderness in the radial area. Range of Motion The patient has normal right wrist ROM. Wrist Extension: normal Flexion: normal Pronation: normal Supination: normal Muscle Strength The patient has normal right wrist strength. Tests Phalen s Sign: negative Tinel's sign (median nerve): negative John's test: positive Other Erythema: absent Sensation: normal Pulse: present Comments: B/l med/uln/rad/ax nerves intact Left Hand Exam Left hand exam is normal. Tenderness The patient is experiencing no tenderness. Range of Motion The patient has normal left wrist ROM. Wrist Extension: normal Flexion: normal Pronation: normal Supination: normal Muscle Strength The patient has normal left wrist strength. Tests Phalen s Sign: negative Tinel's sign (median nerve): negative John's test: negative Other Erythema: absent Sensation: normal Pulse: present Imaging: Last XR Wrist - Impression Only No resulted procedures found. Assessment and Plan: Impression: Encounter Diagnosis ICD-10-CM 1. Tenosynovitis, de Quervain M65.4 Plan: Today, in detail, through a thorough evaluation, we discussed possible etiologies of pain and our plans for further diagnostic and therapeutic interventions. We discussed strategies for decreasing pain and improving strength, stability and motion. Patient's questions were answered in detailed. Patient verbalizes understanding and agrees with the treatment plan as discussed. Risks and benefits vs alternatives to treatment were discussed with patient. Risks including but not limited to blood loss, blood clot, infection, neurovascular injury, failure of procedure, need for revision operation, loss of life and loss of limb. Patient aware of risks and benefits and agrees to proceed with written consent for surgical intervention. Right wrist de Quervains release documented in this encounter [facility] Evaluation note Note Date & Type Note Facility documented in this encounter [facility] Evaluation note Note Date & Type Note Facility documented in this encounter [facility] Evaluation note Note Date & Type Note Facility documented in this encounter [facility] Summary Purpose Family History No Family History Records FoundNo Family History Records FoundNo Family History Records FoundNo Family History Records Found Advance Directives No Advanced Directives Records FoundDocuments on File Type Date Recorded Patient Differential Specialist Expl anation Advance Directive(s) 02/02/2023 2:48 PM Additional Source Comments (unrecognized sect ion and content) No Status Records FoundNo Status Records FoundNo Status Records FoundNo Status Records Found INFORMATION SOURCE (unrecogn ized section and content) DATE CREATED AUTHOR AUTHOR'S ORGANIZ ATION 01/20/2021 [facility] ([place]) DATE CREATED AUTHOR AUTHOR'S ORGANIZ ATION 02/07/2023 [facility] DATE CREATED AUTHOR AUTHOR'S ORGANIZ ATION 02/09/2023 [facility] Source Comments (unrecognize d section and content) In the event this informatio n is protected by the Federal Confidentiality of Alcohol and Drug Abuse Patient Records regulations: The Federal rules restrict any use of the information to criminally investigate or prosecute any alcohol or drug abuse patient.[facility] the event this information is protected by the Federal Confidentiality of Alcohol and Drug Abuse Patient Records regulations: The Federal rules restrict any use of the information to criminally investigate or prosecute any alcohol or drug abuse patient.[facility] the event this information is protected by the Federal Confidentiality of Alcohol and Drug Abuse Patient Records regulations: The Federal rules restrict any use of the information to criminally investigate or prosecute any alcohol or drug abuse patient.[facility] Reason for Visit (unrecogniz ed section and content) Reason Comments Consult FOR RECORDS PERTAINING TO PATIENTS WHO ARE OR HAVE BEEN ENROLLED IN A CHEMICAL DEPENDENCY/SUBSTANCEABUSE PROGRAM, SOME INFORMATION MAY BE OMITTED. This clinical summary was aggregated from multiple sources. Caution should be exercised in using it in the provision of clinical care. This summary normalizes information from multiple sources, and as a consequence, information in this document may materially change the coding, format and clinical context of patient data. In addition, data may be omitted in some cases. CLINICAL DECISIONS SHOULD BE BASED ON THE PRIMARY CLINICAL RECORDS. [facility]. provides no warranty or guarantee of the accuracy or completeness of information in this document.
[2023-10-15 08:22] LABS: Absolute Lymphocyte Count 1.45 X10^3/uL (0.83-4.51); Absolute Neutrophil Count 5.7 X10^3/uL (2.0-7.7); Basophil# 0.03 X10^3/uL; Basophil% 0.4 % (0-1); Eosinophil# 0.23 X10^3/uL; Eosinophils% 2.9 % (0-5); Hematocrit 44.6 % (40-54); Hemoglobin 13.9 g/dL (13.0-16.5); Lymphocyte # 1.45 X10^3/ul (0.83-4.51); Lymphocyte % 18.1 % (19-41); Mean Corp Hgb Conc 31.2 g/dL (32-36); Mean Corpuscular Hgb 26.5 pg (27.0-32.0); Mean Corpuscular Volume 85.1 fL (80-94); Mean Platelet Vol. 11.9 fl (6.2-12.0); Monocyte# 0.56 X10^3/uL; NRBC Flagged by Analyzer 0 % (0-5); Neutrophil # 5.69 X10^3/uL (2.7-7.7); Neutrophil % 71.2 % (47-70); Platelet Count 196 K/mm3 (150-450); RBC Distribution Width CV 14.3 % (11.6-14.6); RBC Distribution Width SD 44.2 fl (35.1-43.9); Red Blood Count 5.24 M/mm3 (4.6-6.2)
[2023-10-15 09:20] LABS: ALB/GLOB Ratio 0.8 RATIO (0.9-2.4); AST(SGOT) 22 U/L (15-37); Alanine Aminotransfer ALT/SGPT 38 U/L (16-61); Albumin, Serum 3.4 g/dL (3.2-5.0); Alkaline Phosphatase 64 U/L (45-117); Anion Gap 7 (5-15); BUN 16 mg/dL (7-18); Calcium,Total 9.5 mg/dL (8.5-10.1); Chloride 106 mmol/L (98-107); Cholesterol 168 mg/dL (200); Creatinine, Serum 1.07 mg/dL (0.70-1.30); EST Glomerular Filtration Rate 75 mL/min (>60); Est Glom Filt Rate - Afr Amer 90 mL/min (>60); Globulin 4.2 g/dL (2.2-4.2); Glucose 109 mg/dL (74-106); High Density Lipoprotein 42 mg/dL; PSA,Total - Annual Screen 0.78 ng/mL (0.00-4.00); Protein, Total 7.6 g/dL (6.4-8.2); Sodium Level 139 mmol/L (136-145); Triglycerides 137 mg/dL; Uric Acid 7.3 mg/dL (3.5-7.2); Very Low Density Lipoprotein 27 mg/dL (5-40)
[2023-10-15 11:01] LABS: Hemoglobin A1c 5.7 % (3.8-5.6)
[2023-10-17 09:17] LABS: Vitamin D,25 Hydroxy 40.7 ng/mL
== END | disposition home or self-care (01) ==
LOC: LAB 07:34
PROVIDERS: PCP Family Medicine; Referring Provider Family Medicine; Visit Provider Family Medicine
DX: Z00.00 Encounter for general adult medical examination without abnormal findings (principal); M10.9 Gout, unspecified; E55.9 Vitamin D deficiency, unspecified
CPT/HCPCS: 36415; 80053; 80061; 82306; 83036; 84153; 84550; 85025; G0103

== ENCOUNTER → 2024-09-10 | Outpatient (CLI) | payer OTHER, SELFPAY ==
[2024-09-10 08:37] LABS: Absolute Lymphocyte Count 1.47 X10^3/uL (0.83-4.51); Absolute Neutrophil Count 5.4 X10^3/uL (2.0-7.7); Basophil# 0.04 X10^3/uL; Basophil% 0.5 % (0-1); Eosinophil# 0.23 X10^3/uL; Hematocrit 43.5 % (40-54); Hemoglobin 13.7 g/dL (13.0-16.5); Lymphocyte # 1.47 X10^3/ul (0.83-4.51); Lymphocyte % 18.9 % (19-41); Mean Corp Hgb Conc 31.5 g/dL (32-36); Mean Corpuscular Hgb 27.6 pg (27.0-32.0); Mean Corpuscular Volume 87.7 fL (80-94); Mean Platelet Vol. 11.8 fl (6.2-12.0); Monocyte# 0.58 X10^3/uL; Monocyte% 7.5 % (0-10); NRBC Flagged by Analyzer 0 % (0-5); Neutrophil # 5.39 X10^3/uL (2.7-7.7); Neutrophil % 69.2 % (47-70); Platelet Count 197 K/mm3 (150-450); RBC Distribution Width SD 44.9 fl (35.1-43.9); Red Blood Count 4.96 M/mm3 (4.6-6.2); White Blood Count 7.8 K/mm3 (4.4-11.0)
[2024-09-10 09:02] LABS: ALB/GLOB Ratio 0.8 RATIO (0.9-2.4); AST(SGOT) 16 U/L (15-37); Alanine Aminotransfer ALT/SGPT 29 U/L (16-61); Albumin, Serum 3.3 g/dL (3.2-5.0); Alkaline Phosphatase 62 U/L (45-117); Anion Gap 6 (5-15); BUN 12 mg/dL (7-18); Calcium,Total 9.6 mg/dL (8.5-10.1); Chloride 108 mmol/L (98-107); Cholesterol 174 mg/dL (200); EST Glomerular Filtration Rate 81 mL/min (>60); Est Glom Filt Rate - Afr Amer 97 mL/min (>60); Glucose 112 mg/dL (74-106); High Density Lipoprotein 45 mg/dL; Protein, Total 7.3 g/dL (6.4-8.2); Sodium Level 141 mmol/L (136-145); Triglycerides 180 mg/dL; Uric Acid 5.7 mg/dL (3.5-7.2); Very Low Density Lipoprotein 36 mg/dL (5-40)
[2024-09-10 09:50] LABS: Hemoglobin A1c 5.7 % (3.8-5.6)
== END | disposition home or self-care (01) ==
PROVIDERS: PCP Family Medicine; Referring Provider Family Medicine; Visit Provider Family Medicine
DX: Z00.00 Encounter for general adult medical examination without abnormal findings (principal); R73.03 Prediabetes; M10.9 Gout, unspecified; Z12.5 Encounter for screening for malignant neoplasm of prostate
CPT/HCPCS: 36415; 80053; 80061; 83036; 84550; 85025

== ENCOUNTER 2024-09-27 08:30 | Outpatient (RCR) | payer OTHER, SELFPAY ==
--- NOTE | 2024-08-15 10:26 | HP.PTEVAL ---
Patient's Visit Information Visit Information Visit Information: ANUEL CLEMENTS is a 63 year old M referred to Physical Therapy by Dr. Tg Ratliff, DO with a diagnosis of S/P MEDIAL MENISCUS MEDIAL MENISCUS REPAIR KNEE, S/P ARTHROSCOPIC KNEE. Date of Evaluation: 08/15/24 Physical Therapist: Donta Mccloud, PT, Cert MDT, OCS Visit Plan Frequency: 2x /Week Duration: 10 WEEKS Plan: PATIENT HAS BEEN NON COMPLIANT WITH TTWB STATUS ,KNEE BRACE UNLOCKED USING ROLLATOR PATIENT IS TO BE TTWB RLE WITH BRACE LOCKED FOR 6 WEEKS ,OKAY TROM BRACE 0-60 DEGREES AT REST ,THEN 0-90 DEGREES AT REST FOR 4-6 WEEKS S/P MEDIAL MENISCUS REPAIR JUL 17 SEE GUIDELINES FOR MENISCUS REPAIR PT INTERVETIONS ROM 0-60 DEGREES 2-4 WEEKS ,ROM 0-90 FOR 4-6WEEKS , AROM KNEE ,MAT EX'S 3 WAY SLR , GAIT TRAINING WITH BRACE LOCKED WITH TTWB 6 WEEKS ,PROGRESS TO GRADUAL STRENGTHENING QUADS/HAMS/HIP WITH WB , PROGRESS ROM PER GUIDLINES FUNCTIONAL STRENGTHENING ,PATIENT FAMILY EDUCATION AND CP Subjective Subjective: This 63 y/o male presents to physical therapy with s/p right knee arthroscopic medial meniscus repair. Patient arrived to PT with poor recall of surgery date ,thinks done by Dr Ratliff at [facility] at [place]. Patient also walked in PT dept with WBAT with rollator and with brace unlocked . Discussed with patient TTWB for 6 weeks and brace locked in extension and okay to unlock at rest 60 degrees. 2-4 weeks and 4-6 weeks and 0-90 degrees at rest . Patient seen 08/09 PA . Recommended PT . Stopped pain medication. Patient min pain.Patient has min edema and edema and has been ice. RTD Sep 06 . Sleeping good. Prior to surgery had MRI. Patient has 1 story 2 story home with 2steps. Patient walk in shower. Patient condition affects QOL and function and walking. Patient goals to return to normal function. SOCIAL: single VOCATION: unemployed Pain Right: Pain Intensity (Out of 10): 2 Pain Intensity Range: 10 Objective Objective: POSTURE: stands with hips/knees ,with brace GAIT:Ambulate with brace and WBAT RLE to PT clinic ( Discussed with patient /spousen,TTWB with brace locked in extension) NEURO: denies paresthesia/tingling EDEMA: mid patella 53.5 cm AROM: supine knee flexion 5-80 degrees MMT: ( peak force) quads/hams/hip 0 Balance/Special Test Scores Lower Extremity Functional Score: 19 Goals Goal 1:: Patient to be I with HEP for knee Goal Time Frame: 8-12 Weeks Goal 2:: Patient to improve AROM supine knee flexion 0-125 degrees to improve stairs. Goal Time Frame: 8-12 Weeks Goal 3:: Patient improve to peak force quads/hams/hip by 15-20 # strength to improve function and gait Goal Time Frame: 8-12 Weeks Goal 4:: Patient to normalize gait Goal Time Frame: 8-12 Weeks Goal 5:: Patient to improve LFES score by 5 -10 points to improve QOL Goal Time Frame: 8-12 Weeks Rehabilitation Potential Physical Therapy Diagnosis: Patient underwent s/p medial meniscectomy repair ~ Jul 17 with no compliant with WB status and brace not looked in extension . Patient has deficits with decrease ROM ,weakness ,gait and balance thus benefit from skilled PT Rehabilitation Potential: Good Anticipated Interventions Patient/Client Instruction: Educate patient on: Condition and Plan of Care For the Purpose of:: To increase ROM, To improve muscle performance and motor function, To improve ability to perform ADL's, To increase tolerance to activity/condition/position, To improve performance and independence with ADL's, To improve ability of physical actions for home/community/work/leisure, To improve gait and locomotor functions, To improve health of tissue, To improve endurance, To improve balance, To improve safety with gait, To reduce risk of recurrence, To improve health and function and To improve tolerance to ADL's Therapeutic Exercise to Include: Strength training, Endurance training, Balance training, Flexibilty training, Gait and locomotor training and Active ROM Comment: 6 WEEKS TTWB RLE QUADS/HAMS/HIP For the Purpose of:: To increase ROM, To improve muscle performance and motor function, To improve ability to perform ADL's, To increase tolerance to activity/condition/position, To improve ability of physical actions for home/community/work/leisure, To improve gait and locomotor functions, To increase flexibility/ROM, To improve endurance, To improve balance and To assume or resume ADL's Text: Thank you for the opportunity to evaluate your patient. For Medicare and Medicare HMO plans, please review the plan of care and approve it. It will need to be FAXED BACK to us at [phone] for Medicare purposes. For Medicare only, by signing this I certify the plan of care. Please let me know if there are questions or concerns regarding this plan of care. Physician Signature: Date:
--- NOTE | 2025-02-06 09:18 | HP.PT.NRP ---
Patient Information Patient Information: ANUEL CLEMENTS was seen in my office for initial evaluation on 08/15/24. The following Plan of Care was established for this patient: POC Established Initial Frequency: 2x /Week Initial Duration: 10 WEEKS Anticipated Interventions Patient/Client Instruction: Educate patient on: Condition and Plan of Care For the Purpose of:: To increase ROM, To improve muscle performance and motor function, To improve ability to perform ADL's, To increase tolerance to activity/condition/position, To improve performance and independence with ADL's, To improve ability of physical actions for home/community/work/leisure, To improve gait and locomotor functions, To improve health of tissue, To improve endurance, To improve balance, To improve safety with gait, To reduce risk of recurrence, To improve health and function and To improve tolerance to ADL's Therapeutic Exercise to Include: Strength training, Endurance training, Balance training, Flexibilty training, Gait and locomotor training and Active ROM For the Purpose of:: To increase ROM, To improve muscle performance and motor function, To improve ability to perform ADL's, To increase tolerance to activity/condition/position, To improve ability of physical actions for home/community/work/leisure, To improve gait and locomotor functions, To increase flexibility/ROM, To improve endurance, To improve balance and To assume or resume ADL's Last Seen Last Seen: This patient was last seen in our office . Pertinent comments regarding their Physical therapy will appear below: Patient was seen for PT for S/P MEDIAL MENISCUS MEDIAL MENISCUS REPAIR KNEE, S/P ARTHROSCOPIC KNEE with progression ROM strength and function with gait thus is D/C At this point I will be discontinuing this patient from physical therapy. I would be happy to see this patient again in the future if found appropriate by the physician. Thank you! Donta Mccloud, PT, Cert MDT, OCS Balance/Gait/Functional tests Balance/Special Test Scores Lower Extremity Functional Score: 19
== END 2024-09-27 19:00 | disposition home or self-care (01) ==
LOC: PT 08:30
PROVIDERS: PCP Family Medicine; Referring Provider Orthopaedic Surgery; Visit Provider Orthopaedic Surgery
DX: Z98.890 Other specified postprocedural states (principal)
CPT/HCPCS: 97110; 97162

== ENCOUNTER 2025-01-07 07:03 | Day surgery (SDC) | payer MEDICAID, SELFPAY ==
[2025-01-07] VITALS (7 sets, daily range): BP systolic 98–137; BP diastolic 55–75; PULSE 67–84; RESP 16–20; TEMP 36.1–36.9; O2SAT 94–100; BMI 40.7
--- NOTE | 2025-01-07 07:13 | PRE.ANES_ITS ---
ASA Classification* ASA Classification ASA Classification: 2 Assessment & Plan Anesthesia* Anesthesia Assessment Anesthesia Assessment: Discussed sedation and/or anesthesia options, risks, benefits, and alternatives with patient/parents/legal guardian/POA. Questions invited. The patient/parents/legal guardian/POA seems to understand and agrees to proceed with anesthesia plan. Reviewed the physical assessment, medical history, allergy history and patient home medications list prior to surgery/procedure/anesthetic and documented any changes. Performed airway and anesthesia risk assessments. Anesthesia Type Anesthesia Type: MAC Anesthesia Focused Assessment* Airway Assessment Mouth opens: >3 cm Mallampati Score: II Focused Labs Anesthesia Preop lab: CBC WBC 7.8 K/mm3 (4.4-11.0) 09/10/24 08:06 09/10/24 RBC 4.96 M/mm3 (4.6-6.2) 09/10/24 08:06 09/10/24 Hgb 13.7 g/dL (13.0-16.5) 09/10/24 08:06 09/10/24 Hct 43.5 % (40-54) 09/10/24 08:06 09/10/24 Plt Count 197 K/mm3 (150-450) 09/10/24 08:06 09/10/24 CHEMISTRY Potassium 4.0 mmol/L (3.5-5.1) 09/10/24 08:06 09/10/24 Sodium 141 mmol/L (136-145) 09/10/24 08:06 09/10/24 BUN 12 mg/dL (7-18) 09/10/24 08:06 09/10/24 Creatinine 1.00 mg/dL (0.70-1.30) 09/10/24 08:06 09/10/24 Glucose 112 mg/dL (74-106) H 09/10/24 08:06 09/10/24 TSH 1.07 uIU/mL (0.358-3.74) 03/20/22 07:01 COAG Pre-Assessment Diagnosis/Proposed Procedure Planned Operative Procedure(s): COLONOSCOPY Anesthesia History 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 When Was Last Pacemaker Check QUESTION #4 FULL TEXT: You/Your Family Experience fever (hyperthermia) with Anesthesia Last Oral Intake Last Oral intake: Last Oral Intake NPO since Meds taken in AM with sips of water? 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 Female No 01/03/25 08:29 HX of Motion Sickness No 01/03/25 08:29 HX of N/V After Surgery No 01/03/25 08:29 Non-Smoker Yes 01/03/25 08:29 Duration of Surgery greater No 01/03/25 08:29 than 60 minutes Number of Risk Factors 1 01/03/25 08:29 PONV Score Low Risk 01/03/25 08:29 Height & Weight Height & Weight: Anesthesia: Height & Weight Height 5 ft 5 in 12/05/24 14:40 Respiratory Assessment Respiratory Assessment - vocational horticulture instructor: Respiratory Tract Infection Hx - vocational horticulture instructor Hx Respiratory Tract Infection No 01/03/25 08:29 STOP Sleep Apnea STOP Sleep Apnea - vocational horticulture instructor: STOP Sleep Apnea - vocational horticulture instructor Hx Hypertension No 01/03/25 08:29 Hx Sleep Apnea Yes 01/03/25 08:29 CPAP Yes 01/03/25 08:29 BIPAP No 01/03/25 08:29 Do you snore loudly (louder than talking or can be heard Do you often feel tired/ fatigued/ sleepy during daytime? Has anyone observed you stop breathing during sleep? STOP Results Positive 01/03/25 08:29 QUESTION #5 FULL TEXT : Do you snore loudly (louder than talking or can be heard through closed doors)? 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 Specify any problems Hx of Preganancy in last 3 N/A 01/03/25 08:29 Months Nurse Filling Out Transfusion MGRIFFITH 01/03/25 08:29 & Questions: Date: 01/03/25 01/03/25 08:29 Time: 08:31 01/03/25 08:29 Patient unable to answer at this time (ie. 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: /Reproductive Hx- vocational horticulture instructor Hx Now Gestational Age (in weeks): EDC: Hx Hx Para Hx Section SAB No 05/27/22 08:58 PFSH Medical History Arthritis Sleep apnea Positive colorectal cancer screening using Cologuard test Loss of hearing Wears glasses Gout Former smoker CPAP (continuous positive airway pressure) dependence History of pain when walking Tear of lateral meniscus of left knee Tear of medial meniscus of left knee Osteoarthritis of left knee Internal derangement of left knee Strain of left knee Home Medications ?Medication ?Instructions ?Recorded ?Last Taken ?Type allopurinol 100 mg tablet 200 mg PO DAILY 09/18/15 Unk nown History ergocalciferol (vitamin D2) 1,250 1,250 mcg PO JOINER 05/04 02/21 Unknown History mcg (50,000 unit) capsule (Vitamin D2) prednisone 50 mg tablet 50 mg PO DAILY PRN gout flar e up 12/05/24 Unknown History Allergy/AdvReac Type Severity Reaction Status Date / Time No Known Allergies Allergy Verified 01/03/25 08:25 Surgical History History of surgery History of arthroscopy of left knee History of arthroscopy of right knee Hx of tonsillectomy Hx of appendectomy History of carpal tunnel surgery of right wrist History of carpal tunnel surgery of left wrist Hx of arthroscopy of shoulder Social History Smoking Status: Former smoker Review of Systems (Anesthesia) ROS Narrative System reviewed and no additional complaints, except as documented.
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
--- NOTE | 2025-01-07 08:30 | COLBX_PTH ---
PATIENT: ANUEL CLEMENTS LOC: EN U#:[id number] AGE/SX: 64/M ROOM: RE01/07/[address]: Dr. Leslye Dawson MD : 1960 BED: DIS: 01/07/2025 SPEC #: [id number] RECD: 01/07/25 12:38 STATUS: VLAD RENayely #: [id number] PERRY: 01/07/25 08:[address]: Leslye Dawson DEPT: SURGICAL PATHOLOGY RECD BY: Lb Saenz ENTERED: 01/07/25 12:38 SP TYPE: COLON BX OTHR DR: Dr. Cy Macario, Tissues: A - Ascending colon B - Transverse colon Procedures: Surgery Specimen Level IV HEADER OPERATION: Colonoscopy with polypectomy PRE-OP DIAGNOSIS: Positive colorectal cancer screening using Cologuard test TISSUE SUBMITTED: A- Ascending colon polyp, B- Transverse colon polyp MICROSCOPIC DIAGNOSIS A. Ascending colon, polyp, biopsy: - Tubulovillous adenoma, multiple fragments. B. Transverse colon, polyp, biopsy: - Tubular adenoma. MICROSCOPIC DESCRIPTION Slides are reviewed. GROSS DESCRIPTION A. Received in formalin in a container labeled with the patient's name, date of , and ascending colon polyp are multiple goodman-pink fragments of mucosal tissue measuring 2.2 x 1.7 x 0.6 cm in aggregate. The largest fragment is sectioned. Submitted entirely in A1. B. Received in formalin in a container labeled with the patient's name, date of , and transverse colon polyp are multiple goodman-pink fragments of mucosal tissue measuring 1.0 x 0.5 x 0.3 cm in aggregate. Submitted in toto in B1. [facility] 01-07-2025 CPT:56895w0
--- NOTE | 2025-01-07 09:08 | OP.COLON_ITS ---
Patient Name: Shane Talavera Procedure Date: 01/07/2025 8:35 AM Date of : 1960 Age: 64 Procedure: Colonoscopy Indications: Positive Cologuard test Providers: Leslye Dawson MD Referring MD: Cy Macario Medicines: Monitored Anesthesia Care Patient Profile: Last Colonoscopy: more than 10 years ago. Complications: No immediate complications. Procedure: Pre-Anesthesia Assessment: - Prior to the procedure, a History and Physical was performed, and patient medications and allergies were reviewed. The patient's tolerance of previous anesthesia was also reviewed. The risks and benefits of the procedure and the sedation options and risks were discussed with the patient. All questions were answered, and informed consent was obtained. Prior Anticoagulants: The patient has taken no anticoagulant or antiplatelet agents. ASA Grade Assessment: Per anesthesia. After reviewing the risks and benefits, the patient was deemed in satisfactory condition to undergo the procedure. After I obtained informed consent, the scope was passed under direct vision. Throughout the procedure, the patient's blood pressure, pulse, and oxygen saturations were monitored continuously. The Colonoscope was introduced through the anus and advanced to the cecum, identified by the appendiceal orifice, ileocecal valve and palpation. The colonoscopy was performed without difficulty. The patient tolerated the procedure well. The quality of the bowel preparation was good. Scope In: 8:39:30 AM Scope Withdrawal Time 0 hours 15 minutes 33 seconds Scope Out: 8:59:35 AM Total Procedure Duration Time 0 hours 20 minutes 5 seconds Findings: The perianal and digital rectal examinations were normal. A 10 mm polyp was found in the ascending colon. The polyp was carpet-like and multi-lobulated. The polyp was removed with a piecemeal technique using a hot snare. Resection and retrieval were complete. [Clip Device]. A less than 5 mm polyp was found in the transverse colon. The polyp was semi-pedunculated. The polyp was removed with a hot snare. Resection and retrieval were complete. A few small-mouthed diverticula were found in the sigmoid colon. The exam was otherwise without abnormality on direct and retroflexion views. Impression: - One 10 mm polyp in the ascending colon, removed piecemeal using a hot snare. Resected and retrieved. - One less than 5 mm polyp in the transverse colon, removed with a hot snare. Resected and retrieved. - Diverticulosis in the sigmoid colon. - The examination was otherwise normal on direct and retroflexion views. Recommendation: - Discharge patient to home. - Resume previous diet. - Continue present medications. - Await pathology results. - Repeat colonoscopy 1-3 years for surveillance based on pathology results due to piecemeal removal of larger polyp. Procedure Code(s): --- Professional --- 55872, Colonoscopy, flexible; with removal of tumor(s), polyp(s), or other lesion(s) by snare technique Diagnosis Code(s): --- Professional --- D12.2, Benign neoplasm of ascending colon D12.3, Benign neoplasm of transverse colon (hepatic flexure or splenic flexure) R19.5, Other fecal abnormalities K57.30, Diverticulosis of large intestine without perforation or abscess without bleeding CPT copyright 2021 [employer]. All rights reserved. The codes documented in this report are preliminary and upon firer [employer] review may be revised to meet current compliance requirements. MD Leslye Orosco MD 01/07/2025 9:08:05 AM This report has been signed electronically. Number of Addenda: 0 Note Initiated On: 01/07/2025 8:35 AM
--- NOTE | 2025-01-07 09:08 | OP.CCLET_ITS ---
01/07/2025 Cy Macario [address] [place] [address] Re : Colonoscopy procedure for Shane Talavera Dear Dr. Macario This procedure was performed on Tuesday, January 07, 2025. My impressions and recommendations are as follows: Impressions : - One 10 mm polyp in the ascending colon, removed piecemeal using a hot snare. Resected and retrieved. - One less than 5 mm polyp in the transverse colon, removed with a hot snare. Resected and retrieved. - Diverticulosis in the sigmoid colon. - The examination was otherwise normal on direct and retroflexion views. Recommendations : - Discharge patient to home. - Resume previous diet. - Continue present medications. - Await pathology results. - Repeat colonoscopy 1-3 years for surveillance based on pathology results due to piecemeal removal of larger polyp. My findings are described in the full procedure note, which is enclosed. If I can be of further assistance, please feel free to contact me at Doctor phone number(s): , Work: . Sincerely, MD Leslye Orosco MD 01/07/2025 9:08:05 AM This report has been signed electronically.
--- NOTE | 2025-01-07 09:08 | PCM.POST.ANE ---
Anesthesia: Postop Eval I Current Vital Signs Temperature: 98.4 F Pulse Rate: 68 Blood Pressure: 98/55 Respiratory Rate: 16 Pulse Ox: 95 Oxygen Delivery Method: Room Air Assessment Airway patent: Yes Spontaneous unlabored respirations: Yes Mental status: Awake and Calm nausea: No Vomiting: No Anesthesia Complication: No Fluid Hydration Crystalloid volume administer (ml): 60 Total IV fluid infused: 60 Progress Note Anesthesia document: Postop Eval 1 completed: Yes
--- NOTE | 2025-01-07 10:33 | PCM.POSTANE2 ---
Anesthesia Postop Eval I Sum Postop Eval Completion status Anesthesia document: Postop Eval 1 completed: Yes Anesthesia Postop Eval I Summary Anesthesia Postop Eval I Summary: Anesthesia Postop Eval I: Assessment Summary Airway patent Yes 01/07/25 09:09 [email or web address] Spontaneous unlabored Yes 01/07/25 09:09 [email or web address] respirations Mental status Awake,Calm 01/07/25 09:09 [email or web address] nausea No 01/07/25 09:09 [email or web address] Vomiting No 01/07/25 09:09 [email or web address] Anesthesia Postop Eval I: Fluid Summary Crystalloid volume administer 60 01/07/25 09:09 [email or web address] (ml) Colloids volume administered ( ml) Blood Product volume administered (ml) Total IV fluid infused 60 01/07/25 09:09 [email or web address] Anesthesia Postop Eval I: Summary Notes Anesthesia Complication No 01/07/25 09:09 [email or web address] Anesthesia Complication Comment: Post-operative progress note Anesthesia: Postop Eval II Evaluation Mental status: Awake Pain Level: 0 nausea: No Vomiting: No
== END 2025-01-07 09:58 | disposition home or self-care (01) ==
LOC: EN 07:04 → AC 07:04
PROVIDERS: PCP Family Medicine; Referring Provider Family Medicine; Visit Provider Surgery
PROC: 0DJD8ZZ Inspection of Lower Intestinal Tract, Via Natural or Artificial Opening Endoscopic (ICD-10-PCS; CPT 45378; principal; 2025-01-07 08:25)
DX: D12.2 Benign neoplasm of ascending colon (principal); K57.30 Diverticulosis of large intestine without perforation or abscess without bleeding; Z87.891 Personal history of nicotine dependence; R19.5 Other fecal abnormalities; D12.3 Benign neoplasm of transverse colon
CPT/HCPCS: 45385; 88305; A4216; J2405